=== PATIENT | male | born 1950 | race Caucasian/White ===

== ENCOUNTER 2018-01-11 15:08 | Inpatient (IN) | payer MEDICARE, OTHER ==
[2018-01-11 16:27] LABS: BASO # 0.04 K/mm3 (0.0-2.0); BASO % 0.5 % (0.0-3.0); EOS # 0.1 (0.0-0.7); EOS % 1.5 % (1.5-5.0); GRAN # 4.84 (1.4-6.5); GRAN % 65.5 % (50.0-68.0); HEMOGLOBIN 15.7 g/dL (14.0-18.0); LYMPH % 27.6 % (22.0-35.0); MEAN CELL VOLUME 87.6 fl (80.0-105.0); MEAN CORPUSCULAR HEMOGLOBIN 30.8 pg (25.0-35.0); MEAN CORPUSCULAR HGB CONC 35.1 g/dl (31.0-37.0); MEAN PLATELET VOLUME 10.3 fl (7.0-11.0); MONO # 0.4 (0.1-0.6); MONO % 4.9 % (1.0-6.0); RBC 5.1 10^6/uL (3.5-6.1); RED CELL DISTRIBUTION WIDTH 12.8 % (11.5-14.5); WHITE BLOOD COUNT 7.4 10^3/ul (4.5-11.0)
[2018-01-11 16:35] LABS: ALB/GLOB RATIO 1.1 (1.1-1.8); ALBUMIN 4.8 g/dL (3.0-4.8); CALCIUM 11.2 mg/dL (8.4-10.5); MAGNESIUM 1.9 mg/dL (1.7-2.2)
[2018-01-11 16:41] LABS: INR 1.06 (0.93-1.08); PARTIAL THROMBOPLASTIN TIME 33.1 Seconds (25.1-36.5); PROTHROMBIN TIME 12.1 SECONDS (9.4-12.5)
[2018-01-11] MEDS ORDERED: Sodium Chloride 0.9% 1,000 ML IV STA (16:41)
--- NOTE | 2018-01-11 16:53 | ED PDOC ---
Arrival/HPI - General Chief Complaint: High Blood Pressure Time Seen by Provider: 01/11/18 15:36 Historian: Patient - History of Present Illness Narrative History of Present Illness (Text): 01/11/18 16:45 67yo male with PMhx of hypertension present to ED with complaint of elevated BP. the daughter by the bedside interpreted. States patient BP has be intermittently elevated for a week now. Notes associated dryness of his mouth and generalized malasie. He is currently on Losartan 50mg and HCTZ 25mg. Notes complaint with his medications. Denies chest pain, headache, nausea, vomiting, focal weakness, slurred speech, dizziness, any other complaint. Past Medical History - Provider Review Nursing Documentation Reviewed: Yes - Cardiac Hx Cardiac Disorders: Yes Hx Hypertension: Yes - Pulmonary Hx Respiratory Disorders: No - Neurological Hx Neurological Disorder: Yes Hx Transient Ischemic Attacks (TIA): Yes - HEENT Hx HEENT Disorder: No - Renal Hx Renal Disorder: No - Endocrine/Metabolic Hx Endocrine Disorders: No - Hematological/Oncological Hx Blood Disorders: No - Integumentary Hx Dermatological Disorder: No - Musculoskeletal/Rheumatological Hx Musculoskeletal Disorders: No - Gastrointestinal Hx Gastrointestinal Disorders: No - Genitourinary/Gynecological Hx Genitourinary Disorders: No - Psychiatric Hx Psychophysiologic Disorder: No Hx Substance Use: No - Surgical History Hx Appendectomy: Yes Family/Social History - Physician Review Nursing Documentation Reviewed: Yes Family/Social History: Unknown Family HX Smoking Status: Never Smoked Hx Alcohol Use: No Hx Substance Use: No Allergies/Home Meds Allergies/Adverse Reactions: Allergies No Known Allergies Allergy (Verified 01/11/18 15:32) Home Medications: Home Meds Medication Instructions Recorded Confirmed Hydrochlorothiazide [Microzide] 25 mg PO DAILY 01/11/18 01/11/18 Losartan [Cozaar] 50 mg PO DAILY 01/11/18 01/11/18 Review of Systems - Physician Review All systems were reviewed & negative as marked: Yes - Review of Systems Constitutional: Normal, Other (elevated BP) Eyes: Normal ENT: Normal Respiratory: Normal Cardiovascular: Normal Gastrointestinal: Normal Genitourinary Male: Normal Musculoskeletal: Normal Skin: Normal Neurological: Normal Endocrine: Normal Hemo/Lymphatic: Normal Psychiatric: Normal Physical Exam Vital Signs Reviewed: Yes Vital Signs Temp Pulse Resp BP Pulse Ox 01/11/18 21:22 71 18 101/74 97 01/11/18 17:58 64 18 101/51 L 100 01/11/18 16:35 80 17 111/62 95 01/11/18 16:17 89 189/112 H 01/11/18 15:33 98.7 F 83 16 206/118 H 94 L Temperature: Afebrile Blood Pressure: Hypertensive Pulse: Regular Respiratory Rate: Normal Appearance: Positive for: Well-Appearing, Non-Toxic, Comfortable Pain Distress: None Mental Status: Positive for: Alert and Oriented X 3 - Systems Exam Head: Present: Atraumatic, Normocephalic Pupils: Present: PERRL Extroacular Muscles: Present: EOMI Conjunctiva: Present: Normal Mouth: Present: Moist Mucous Membranes Neck: Present: Normal Range of Motion Respiratory/Chest: Present: Clear to Auscultation, Good Air Exchange. No: Respiratory Distress, Accessory Muscle Use Cardiovascular: Present: Regular Rate and Rhythm, Normal S1, S2. No: Murmurs Abdomen: Present: Normal Bowel Sounds. No: Tenderness, Distention, Peritoneal Signs Back: Present: Normal Inspection Upper Extremity: Present: Normal Inspection. No: Cyanosis, Edema Lower Extremity: Present: Normal Inspection. No: Edema Neurological: Present: GCS=15, CN II-XII Intact, Speech Normal Skin: Present: Warm, Dry, Normal Color. No: Rashes Psychiatric: Present: Alert, Oriented x 3, Normal Insight, Normal Concentration Medical Decision Making ED Course and Treatment: 01/11/18 21:27 PT in ED for stated history. His BP improved in ED. Elevated BUN/Cr was noted which could be pre renal and pt was hydrated. No old lab to compare. He started complaining of sever dizziness in ED with vomiting. Vomiting resolved with antiemesis Head CT was negative for acute finding Lab was unremarkable Pt don't have any PMD here in [place]. He needs to be admitted for obs and better control of his BP Case was DW Dr. Chaudhary and he accepted pt for admission. EKG NSR At 81bpm. Result and plan was DW both pt and his family and they agreed. - Lab Interpretations Lab Results: 01/11/18 16:08 01/11/18 16:08 Lab Results 01/11/18 16:45: Urine Color Yellow, Urine Appearance Clear, Urine pH 6.0, Ur Specific Porum 1.015, Urine Protein Negative, Urine Glucose (UA) Negative, Urine Ketones Negative, Urine Blood Negative, Urine Nitrate Negative, Urine Bilirubin Negative, Urine Urobilinogen 0.2, Ur Leukocyte Esterase Negative 01/11/18 16:08: Sodium 139, Potassium 4.6, Chloride 96 L, Carbon Dioxide 29, Anion Gap 18, BUN 28 H, Creatinine 1.7 H, Est GFR ( Amer) 49, Est GFR ( Non-Af Amer) 40, Random Glucose 103, Calcium 11.2 H, Magnesium 1.9, Total Bilirubin 0.9, AST 35, ALT 28, Alkaline Phosphatase 86, Lactate Dehydrogenase 503, Total Creatine Kinase 84, Troponin I 0.02, Total Protein 9.4 H, Albumin 4.8 , Globulin 4.5, Albumin/Globulin Ratio 1.1 01/11/18 16:08: PT 12.1, INR 1.06, APTT 33.1 01/11/18 16:08: WBC 7.4, RBC 5.10, Hgb 15.7, Hct 44.7, MCV 87.6, MCH 30.8, MCHC 35.1, RDW 12.8, Plt Count 209, MPV 10.3, Gran % 65.5, Lymph % (Auto) 27.6, Dodge % (Auto) 4.9, Eos % (Auto) 1.5, Baso % (Auto) 0.5, Gran # 4.84, Lymph # (Auto) 2.0, Dodge # (Auto) 0.4, Eos # (Auto) 0.1, Baso # (Auto) 0.04 - RAD Interpretation Radiology Orders: 01/11/18 18:12 HEAD W/O CONTRAST [CT] Stat - Medication Orders Current Medication Orders: Discontinued Medications Hydralazine HCl (Apresoline) 20 mg IVP ONCE STA Stop: 01/11/18 15:53 Last Admin: 01/11/18 16:17 Dose: 20 mg IVP Administration Document 01/11/18 16:17 [facility] (Rec: 01/11/18 16:[id number] Charges for Administration # of IVP Administrations 1 MAR Pulse and Blood Pressure Document 01/11/18 16:17 [email or web address] (Rec: 01/11/18 16:[id number]) Pulse Pulse Rate (60-90) 89 Blood Pressure Blood Pressure (100/60-150/90) 189/112 Sodium Chloride (Sodium Chloride 0.9%) 1,000 mls @ 999 mls/hr IV .Q1H1M STA Stop: 01/11/18 17:41 Last Admin: 01/11/18 17:06 Dose: 999 mls/hr eMAR Start Stop Document 01/11/18 17:06 [facility] (Rec: 01/11/18 17:06 [facility] [id number]) Intravenous Solution Start Date 01/11/18 Start Time 17:06 End Date 01/11/18 Meclizine HCl (Antivert) 25 mg PO STAT STA Stop: 01/11/18 18:12 Ondansetron HCl (Zofran Inj) 4 mg IVP STAT STA Stop: 01/11/18 18:12 Last Admin: 01/11/18 19:05 Dose: 4 mg IVP Administration Document 01/11/18 19:05 [facility] (Rec: 01/11/18 19:05 [facility] [id number]) Charges for Administration # of IVP Administrations 1 Disposition/Present on Arrival - Present on Arrival Any Indicators Present on Arrival: No History of DVT/PE: No History of Uncontrolled Diabetes: No Urinary Catheter: No History of Decub. Ulcer: No History Surgical Site Infection Following: None - Disposition Have Diagnosis and Disposition been Completed?: Yes Diagnosis: Uncontrolled hypertension, Near syncope Disposition: HOSPITALIZED Disposition Time: 21:00 Patient Plan: Admission Patient Problems: Current Active Problems Problem Status Onset Near syncope Acute Uncontrolled hypertension Acute Condition: FAIR
[2018-01-11 16:54] LABS: TROPONIN I 0.02 ng/mL
[2018-01-11 17:07] LABS: URINE BILIRUBIN NEGATIVE (NEGATIVE); URINE BLOOD NEGATIVE (NEGATIVE); URINE GLUCOSE (UA) NEGATIVE (NEGATIVE); URINE LEUKOCYTE ESTERASE NEGATIVE Leu/uL (NEGATIVE); URINE NITRATE NEGATIVE (NEGATIVE); URINE PROTEIN NEGATIVE mg/dL (<30 mg/dL); URINE UROBILINOGEN 0.2 E.U./dL (<1 E.U./dL)
[2018-01-11 17:08] LABS: URINE APPEARANCE CLEAR (CLEAR); URINE COLOR YELLOW (YELLOW)
--- NOTE | 2018-01-11 19:03 | CT ---
PROCEDURE: CT HEAD WITHOUT CONTRAST. HISTORY: dizziness COMPARISON: None available. TECHNIQUE: Axial computed tomography images were obtained through the head/brain without intravenous contrast. Radiation dose: Total exam DLP = 981.90 MGy-cm. This CT exam was performed using one or more of the following dose reduction techniques: Automated exposure control, adjustment of the mA and/or kV according to patient size, and/or use of iterative reconstruction technique. FINDINGS: HEMORRHAGE: No intracranial hemorrhage. BRAIN: No mass effect or edema. Dense intracranial atherosclerosis. Scattered white matter hypodensities, which are nonspecific, but often seen with chronic microvascular ischemic disease. Please note that MRI with diffusion imaging is more sensitive in the detection of acute ischemic event. VENTRICLES: Cavum septum pellucidum, anatomic variant. No hydrocephalus. CALVARIUM: Unremarkable. PARANASAL SINUSES: Unremarkable as visualized. No significant inflammatory changes. MASTOID AIR CELLS: Unremarkable as visualized. No inflammatory changes. OTHER FINDINGS: None. IMPRESSION: Scattered nonspecific white matter changes. Dense intracranial atherosclerosis. Mild generalized atrophy.
[2018-01-12] MEDS ORDERED: Sodium Chloride 0.45% 1,000 ML IV SCH (07:45)
[2018-01-12 08:55] LABS: ALB/GLOB RATIO 1.2 (1.1-1.8); ALBUMIN 4.5 g/dL (3.0-4.8); CALCIUM 10.2 mg/dL (8.4-10.5)
--- NOTE | 2018-01-12 10:08 | CON ---
DATE: 01/12/2018 CARDIOLOGY CONSULTATION HISTORY OF PRESENT ILLNESS: The patient is a 67-year-old male who presents with transient dizziness. The patient is completely asymptomatic this morning. Denies chest pain, denies shortness of breath. The patient has no previous cardiac history. He does suffer from hypertension, in which he is placed on an DANTE inhibitor and a diuretic. He denies diabetes mellitus. Denies previous myocardial infarction. SOCIAL HISTORY: Negative smoker. REVIEW OF SYSTEMS: Fourteen point review of systems was reviewed in detail. No cardiac symptomatology is noted. PHYSICAL EXAMINATION VITAL SIGNS: Blood pressure is 106/72, the heart rates in the 70s. NECK: Negative JVD. LUNGS: Without rales. HEART: Reveals S1 and S2. EXTREMITIES: Without edema. LABORATORY DATA: EKG is unremarkable. Creatinine is 1.7 with a calcium of 11.2. Hemoglobin is 15.7. IMPRESSION: 1. Transient dizziness, which is now resolved. 2. History of hypertension. 3. Renal insufficiency. 4. Borderline diabetes mellitus. PLAN: Given these findings, there is no cardiac cause of his transient dizziness. There is no evidence for acute coronary syndrome. Given his risk factors, we will order a stress and echocardiogram. This could all be done as an outpatient. Charles Cleveland MD
[2018-01-12 12:40] LABS: MEAN CELL VOLUME 88.6 fl (80.0-105.0); MEAN CORPUSCULAR HEMOGLOBIN 30.7 pg (25.0-35.0); MEAN CORPUSCULAR HGB CONC 34.7 g/dl (31.0-37.0); RBC 4.56 10^6/uL (3.5-6.1); RED CELL DISTRIBUTION WIDTH 13.5 % (11.5-14.5); WHITE BLOOD COUNT 10.9 10^3/ul (4.5-11.0)
[2018-01-12 12:53] LABS: ALB/GLOB RATIO 1.2 (1.1-1.8); ALBUMIN 4.5 g/dL (3.0-4.8); CALCIUM 10.4 mg/dL (8.4-10.5)
--- NOTE | 2018-01-12 16:59 | CP.PCM.CON ---
History of Present Illness - History of Present Illness History of Present Illness: Nephrology Consultation Note: Assessment: Stable Acute Kidney Injury (N17.9) likely due to Hypercalcemia and hemodynamic as elevated by a blood pressure fluctuations Hypercalcemia? Etiology possibly due to HCTZ Abnormal LFTs with elevated AST ALT Possible Hypertensive Chronic Kidney Disease (I12.9) Dizziness likely due to blood pressure fluctuation Plan No acute need for renal replacement therapy at this time. Hypertension control with meds as ordered. Agree with amlodipine low-dose recommended to hold ARB also going to hold HCTZ considering his hypercalcemia Monitor Input/Output, daily weights and renal function with basic metabolic panel While in hospital Agree with IV fluids normal saline while patient in Hospital Check urine analysis, spot protein/creatinine and albumin/creatinine ratio, renal sonogram With Doppler. Will check serum protein electrophoresis with immunofixation, serum FLC assay. Also check vitamin D and PTH level Secondary hypertension workup with metanephrine aldosterone and renin level Workup for abnormal LFT as per primary team Patient stable for discharge from renal perspective and planned. Patient advised to follow with renal office within one week. if patient discharged then we'll pursue this workup as an outpatient Dose meds/antibiotics for reduced GFR. Avoid fleets enema/magnesium based laxatives. Avoid nephrotoxins/NSAIDs/ iodinated contrast (unless needed emergently) Glycemic control Further work up/management as per primary team Thanks for allowing me to participate in care of your patient. Will follow patient with you. Please call if any Qs Discussed with the team Dr Raffy Tijerina Office: [phone] Chief Complaint; Dizziness Reason for consult, acute kidney injury HPI: Pt is a he has history of hypertension +15-20 years he's been taking losartan 50 mg hydrochlorothiazide for this. Patient's blood pressure was high when he came in 206/108 now is 109/71 has elevated creatinine and hence renal consulted. This time feels better he denies any chest breath and shortness of breath cough and fever chills his his dizziness is better at this time Denies OTC/herbal meds or NSAIDs No recent iodinated contrast exposure. now low BP. ROS: Cardiovascular: No chest pain. Pulmonary: No shortness of breath Gastrointestinal: denies abdominal pain No nausea. No vomiting. Genitourinary: No pain while urinating. Denies blood in urine. All other negative except as mentioned in HPI Physical Examination: General Appearance: Comfortable, in no acute respiratory distress, co-operative . Vitals reviewed and noted as below Head; Atraumatic, normocephalic ENT: no ulcers no thrush. Tongue is midline. Oropharynx: no rash or ulcers. EYES: Pupils are equal, round and reactive to light accommodation. Eye muscles and extraocular movement intact. Sclera is anicteric. Neck; supple no lymphadenopathy, no thyromegaly or bruit Lungs: Normal respiratory rate/effort. Breath sounds bilateral equal and clear Heart: Normal rate. s1s2 normal. No rub or gallop. Extremities: no edema. No varicose veins Neurological: Patient is alert, awake and oriented to person, place and time. No focal deficit. Strength bilateral appropriate and equal Skin: Warm and dry. Normal turgor. No rash. Palpitation: Normal elasticity for age Abdomen: Abdomen is soft. Bowel sounds +. There is no abdominal tenderness, no guarding/rigidity no organomegaly, Abdomen is distended Psych: normal insight and normal affect/mood MSK: no joint tenderness or swelling. Digits and nails normal, no deformity : kidney or bladder not palpable Labs/imaging reviewed. Past medical history, past surgical history, family history, social history, allergy reviewed and noted as below Family hx: no hx of CKD. Rest non-contributory Workup UA negative for any blood protein Past Patient History - Past Social History Smoking Status: Never Smoked - CARDIAC Hx Cardiac Disorders: Yes Hx Hypertension: Yes - PULMONARY Hx Respiratory Disorders: No - NEUROLOGICAL Hx Neurological Disorder: Yes Hx Transient Ischemic Attacks (TIA): Yes - HEENT Hx HEENT Problems: No - RENAL Hx Chronic Kidney Disease: No - ENDOCRINE/METABOLIC Hx Endocrine Disorders: No - HEMATOLOGICAL/ONCOLOGICAL Hx Blood Disorders: No - INTEGUMENTARY Hx Dermatological Problems: No - MUSCULOSKELETAL/RHEUMATOLOGICAL Hx Musculoskeletal Disorders: No Hx Falls: No - GASTROINTESTINAL Hx Gastrointestinal Disorders: No - GENITOURINARY/GYNECOLOGICAL Hx Genitourinary Disorders: No - PSYCHIATRIC Hx Psychophysiologic Disorder: No - SURGICAL HISTORY Hx Appendectomy: Yes Meds Allergies/Adverse Reactions: Allergies Allergy/AdvReac Type Severity Reaction Status Date / Time No Known Allergies Allergy Verified 01/11/18 15:32 - Medications Medications: Current Medications Amlodipine Besylate (Norvasc) 2.5 mg PO DAILY DON Sodium Chloride (Sodium Chloride 0.45%) 1,000 mls @ 60 mls/hr IV .[id number] DON Results - Vital Signs Recent Vital Signs: Last Vital Signs Temp 98.3 F 01/12/18 07:00 Pulse 67 01/12/18 10:46 Resp 18 01/12/18 07:00 BP 109/71 01/12/18 10:46 Pulse Ox 93 L 01/12/18 07:00 - Labs Result Diagrams: 01/12/18 12:30 01/12/18 12:30 Labs: Laboratory Results - last 24 hr 01/12/18 01/12/18 01/12/18 08:20 12:30 12:30 WBC 10.9 D RBC 4.56 Hgb 14.0 Hct 40.4 L MCV 88.6 MCH 30.7 MCHC 34.7 RDW 13.5 Plt Count 196 MPV 10.0 Sodium 137 136 Potassium 5.0 5.1 H Chloride 98 96 L Carbon Dioxide 26 26 Anion Gap 19 18 BUN 37 H 38 H Creatinine 2.2 H 2.1 H Est GFR ( Amer) 36 38 Est GFR (Non-Af Amer) 30 32 Random Glucose 128 H 120 H Calcium 10.2 10.4 Total Bilirubin 1.1 1.0 AST 538 H D 677 H D ALT 69 H 87 H Alkaline Phosphatase 62 58 Total Protein 8.4 H 8.4 H Albumin 4.5 4.5 Globulin 3.9 3.8 Albumin/Globulin Ratio 1.2 1.2
--- NOTE | 2018-01-12 20:39 | PN ---
SUBJECTIVE: I was called to see him by the Emergency Room. He comes into the hospital with an extremely high elevated blood pressure, brought in by the daughter, who is the bit grinder. She was also there when I saw him. He is also a little bit weak, dry mouth. He has been on losartan 50 mg and hydrochlorothiazide 25 mg. No other complaints or issues. PAST MEDICAL HISTORY: He has hypertension. He has had a TIA in the past. PAST SURGICAL HISTORY: He had an appendectomy. It is his only surgery. FAMILY HISTORY: Unknown family history. SOCIAL HISTORY: Never smoked. No alcohol. No drugs. ALLERGIES: NO KNOWN DRUG ALLERGIES. MEDICATIONS: He takes hydrochlorothiazide and Cozaar. REVIEW OF SYSTEMS: He has elevated blood pressure, but no headache. No vision changes, no hearing changes. No sore throat. No neck pain. No chest pain or palpitations. No shortness of breath. No cough. No abdominal pain. No nausea, vomiting, constipation, diarrhea. No leg pain. No anxiety. No depression. No tremors. PHYSICAL EXAMINATION: VITAL SIGNS: He has a 98.7 temperature, 83 pulse, 16 respiratory rate, blood pressure was as high as 206/118 and 94% O2 sat. It did go to 189/112 and eventually went to 101/74 with some medication in the ER. I am seeing him this morning, it is still about 105/70. He is comfortable right now. He has not had medication about 8 hours. GENERAL: He is well appearing, nontoxic, comfortable. He is alert and oriented x3. HEENT: Head: Atraumatic, normocephalic. Pupils equal, reactive to light and accommodation. Extraocular muscles are intact. Throat is moist. NECK: Supple. Thyroid midline. No palpable appreciable lymphadenopathy. HEART: Regular rate. Normal S1, S2. LUNGS: Decreased breath sounds. Clear to auscultation. ABDOMEN: Soft, nontender. Positive bowel sounds. EXTREMITIES: No edema. NEUROLOGICAL: GCS is 15. Cranial nerves are II through XII grossly intact. Speech is normal. SKIN: Warm and dry. NEUROLOGIC: Alert and oriented x3. He looks very comfortable. LABORATORY DATA: He had a CT of the head, which shows scattered nonspecific white matter changes, dense intracranial atherosclerosis, mild generalized atrophy. He has a 139 sodium, potassium 4.6, BUN 20, creatinine 1.7, which is new and I was not told about it. We will put him on some IV fluids and call on Renal, calcium is 7.2, which is also quite high, we will call on Renal for that too. His magnesium is 1.9, total bili is 0.9, AST is 35, ALT is 20, alkaline phosphatase is 86. Troponin I is 0.02, total protein is 9.4. His INR is 1.06. He has 7.4 white count, 15.7 hemoglobin, 44.7 hematocrit with a 209 platelets. Last blood pressure was 106/72. PLAN: I stopped the Apresoline and the Cozaar and I am going to put him on Norvasc at 2.5 mg for today. I called in Cardiology, Neurology and Renal. I put him on IV fluids. I have lab pending at 1:00 o'clock today. I am hoping I could discharge him later on this afternoon if it is okay with Renal, Cardio, and Neuro. He is quite comfortable right now. Everything seems to have resolved and I will set him up on Norvasc 2.5 if that is okay with the other doctors. Otherwise, elevated hypertension, renal insufficiency, high calcium and he is pleasant at this time. He is here for observation. Myron Chaudhary DO MTDD
--- NOTE | 2018-01-12 23:33 | CON ---
DATE: HISTORY OF PRESENT ILLNESS: This is a 67-year-old male with no significant past medical history, came here with a period of transient dizziness and also has a past medical history of hypertension. I was called to evaluate the patient's CAT scan of the head, which was reported negative for bleed. PAST MEDICAL HISTORY: Hypertension. SOCIAL HISTORY: Negative for smoking. REVIEW OF SYSTEMS: A 10-point review of systems negative. PHYSICAL EXAMINATION: VITAL SIGNS: Blood pressure 106/72. HEENT: Normocephalic, atraumatic. NECK: Supple. NEUROLOGIC: Alert, awake, oriented x3. No aphasia. Cranial nerves II through XII are tested. Pupils reactive. EOM intact. Visual peterson full. No facial asymmetry. Tongue midline. Motor; moves all extremities equally. Tone normal. Deep tendon reflexes 1+. Both plantars are downgoing. Sensory appears intact. Cerebellar; gait, no dysmetria. IMPRESSION AND PLAN: Dizziness, possibly benign positional; history of hypertension; renal insufficiency and borderline diabetes. Continue present medications and workup. We will follow up. Jacobo Lockwood MD
[2018-01-13 06:52] LABS: MEAN CELL VOLUME 88.5 fl (80.0-105.0); MEAN CORPUSCULAR HEMOGLOBIN 29.8 pg (25.0-35.0); MEAN CORPUSCULAR HGB CONC 33.7 g/dl (31.0-37.0); MEAN PLATELET VOLUME 10.7 fl (7.0-11.0); RBC 4.36 10^6/uL (3.5-6.1); RED CELL DISTRIBUTION WIDTH 13.5 % (11.5-14.5); WHITE BLOOD COUNT 11.7 10^3/ul (4.5-11.0)
[2018-01-13 07:16] LABS: ALB/GLOB RATIO 1.2 (1.1-1.8); ALBUMIN 4.2 g/dL (3.0-4.8); CALCIUM 9.9 mg/dL (8.4-10.5)
--- NOTE | 2018-01-13 08:46 | CP.PCM.CON ---
<Tisha Cross - Last Filed: 01/13/18 09:30> History of Present Illness - History of Present Illness History of Present Illness: PGY4 Initial GI Consult Sloan Santana is a 67M w/ hx of HTN who presented to the office for elevated BP. Pt was found to be in hypertensive emergency with BERE. Pt blood pressure was corrected rapidly. He presented with BERE and is being actively being seen by nephrology. He denies any recent or previous alcohol use. He notes that he last had a beer 1-2 months ago. He notes taking a prostate supplement. Pt was not started on any meds that would cause his Liver enzymes to rise. His AST peaked to ~650 and AST ~ 100. He denies any previous exposure to hepatitis virus and past hospitalization fir liver related issues. he notes previously having [place], but does not recall the doctors name or results. Denies any abd pain, melena, hematemesis, or coffee-ground emesis. PMHx: HTN PSHx: Appendectomy Social Hx: denies alcohol use (social; 1-2 beers on occasion), denies any IV drug use Endo hx: EGD and colonoscopy 1-2 years ago Family hx: denies any colon cancer ROS: 12 point ROS conducted neg other than above Past Patient History - Past Social History Smoking Status: Never Smoked - CARDIAC Hx Cardiac Disorders: Yes Hx Hypertension: Yes - PULMONARY Hx Respiratory Disorders: No - NEUROLOGICAL Hx Neurological Disorder: Yes Hx Transient Ischemic Attacks (TIA): Yes - HEENT Hx HEENT Problems: No - RENAL Hx Chronic Kidney Disease: No - ENDOCRINE/METABOLIC Hx Endocrine Disorders: No - HEMATOLOGICAL/ONCOLOGICAL Hx Blood Disorders: No - INTEGUMENTARY Hx Dermatological Problems: No - MUSCULOSKELETAL/RHEUMATOLOGICAL Hx Musculoskeletal Disorders: No Hx Falls: No - GASTROINTESTINAL Hx Gastrointestinal Disorders: No - GENITOURINARY/GYNECOLOGICAL Hx Genitourinary Disorders: No - PSYCHIATRIC Hx Psychophysiologic Disorder: No - SURGICAL HISTORY Hx Appendectomy: Yes Meds Allergies/Adverse Reactions: Allergies Allergy/AdvReac Type Severity Reaction Status Date / Time No Known Allergies Allergy Verified 01/11/18 15:32 - Medications Medications: Current Medications Amlodipine Besylate (Norvasc) 2.5 mg PO DAILY DON Sodium Chloride (Sodium Chloride 0.45%) 1,000 mls @ 60 mls/hr IV .[id number] [facility] Last Admin: 01/12/18 21:56 Dose: 60 mls/hr Physical Exam - Constitutional Appears: No Acute Distress - Head Exam Head Exam: ATRAUMATIC, NORMOCEPHALIC - Eye Exam Eye Exam: Normal appearance - ENT Exam ENT Exam: Mucous Membranes Moist, Normal Exam - Neck Exam Neck exam: Positive for: Normal Inspection - Respiratory Exam Respiratory Exam: Clear to Auscultation Bilateral, NORMAL BREATHING PATTERN. absent: Rales, Rhonchi, Wheezes, Respiratory Distress - Cardiovascular Exam Cardiovascular Exam: REGULAR RHYTHM, +S1, +S2 - GI/Abdominal Exam GI & Abdominal Exam: Normal Bowel Sounds, Soft. absent: Distended, Guarding, Organomegaly, Rigid, Tenderness - Extremities Exam Extremities exam: Negative for: joint swelling, tenderness - Neurological Exam Neurological exam: Alert, Oriented x3 - Psychiatric Exam Psychiatric exam: Normal Affect, Normal Mood - Skin Skin Exam: Dry, Intact, Normal Color, Warm Results - Vital Signs Recent Vital Signs: Last Vital Signs Temp 98.6 F 01/13/18 08:40 Pulse 83 01/13/18 08:40 Resp 20 01/13/18 08:40 BP 125/81 01/13/18 08:40 Pulse Ox 96 01/13/18 08:40 - Labs Result Diagrams: 01/13/18 05:30 01/13/18 05:30 Labs: Laboratory Results - last 24 hr 01/12/18 01/12/18 01/12/18 08:20 12:30 12:30 WBC 10.9 D RBC 4.56 Hgb 14.0 Hct 40.4 L MCV 88.6 MCH 30.7 MCHC 34.7 RDW 13.5 Plt Count 196 MPV 10.0 Sodium 137 136 Potassium 5.0 5.1 H Chloride 98 96 L Carbon Dioxide 26 26 Anion Gap 19 18 BUN 37 H 38 H Creatinine 2.2 H 2.1 H Est GFR ( Amer) 36 38 Est GFR (Non-Af Amer) 30 32 Random Glucose 128 H 120 H Calcium 10.2 10.4 Phosphorus Total Bilirubin 1.1 1.0 AST 538 H D 677 H D ALT 69 H 87 H Alkaline Phosphatase 62 58 Total Protein 8.4 H 8.4 H Albumin 4.5 4.5 Globulin 3.9 3.8 Albumin/Globulin Ratio 1.2 1.2 01/12/18 01/13/18 01/13/18 12:30 05:30 05:30 WBC 11.7 H RBC 4.36 Hgb 13.0 L Hct 38.6 L MCV 88.5 MCH 29.8 MCHC 33.7 RDW 13.5 Plt Count 180 MPV 10.7 Sodium 135 Potassium 4.5 Chloride 96 L Carbon Dioxide 27 Anion Gap 16 BUN 43 H Creatinine 1.9 H Est GFR ( Amer) 43 Est GFR (Non-Af Amer) 36 Random Glucose 110 Calcium 9.9 Phosphorus 4.3 Total Bilirubin 1.2 AST 669 H ALT 105 H Alkaline Phosphatase 55 Total Protein 7.8 Albumin 4.2 Globulin 3.6 Albumin/Globulin Ratio 1.2 Assessment & Plan - Assessment and Plan (Free Text) Assessment: Sloan Santana is a 67M w/ hx of HTN who presented with hypertensive emergency. Consulted for elevated transaminases. Elevated trnasaminases; etiology muscular versus hepatic, based on AST:ALT >6 HTN emergency BERE Plan: -add-on CK levels -will order infectous and autoimmune work-up -abd u/s -AST and ALT is also in muscle cells and AST is at a higher ratio. will order CK levels to determine if pt had underlying rhabomyolsis -DDx: Hypoperfusion in the setting of correction of longstanding elevate HTN -monitor LFTs -rest of care as per primary team D/W Dr. Herrera <Duarte Herrera - Last Filed: 01/13/18 13:08> Meds - Medications Medications: Current Medications Amlodipine Besylate (Norvasc) 2.5 mg PO DAILY [facility] Last Admin: 01/13/18 10:08 Dose: 2.5 mg Sodium Chloride (Sodium Chloride 0.9%) 1,000 mls @ 150 mls/hr IV .Q6H40M [facility] Last Admin: 01/13/18 11:08 Dose: 150 mls/hr Results - Vital Signs Recent Vital Signs: Last Vital Signs Temp 98.6 F 01/13/18 08:40 Pulse 83 01/13/18 08:40 Resp 20 01/13/18 08:40 BP 125/81 01/13/18 10:08 Pulse Ox 96 01/13/18 08:40 - Labs Result Diagrams: 01/13/18 05:30 01/13/18 05:30 Attending/Attestation - Attestation I have personally seen and examined this patient.: Yes I have fully participated in the care of the patient.: Yes I have reviewed all pertinent clinical information: Yes Notes (Text): 01/13/18 13:07 67 year old male with h/o HTN, we are consulted for elevated LFTs. His AST : ALT ratio is 6:1, which is consistent with a muscle source for this abnormality. We checked a CK which is also acutely elevated and this confirms this is from a muscle, not liver source. Will sign off.
[2018-01-13 10:12] LABS: CK MB% 3.9 % (2.5-3.0)
--- NOTE | 2018-01-13 10:52 | US ---
HISTORY: Elevated LFTs COMPARISON: None. TECHNIQUE: Grayscale imaging was performed. FINDINGS: LIVER: Measures 15.8 cm. There is diffuse increased echogenicity of the liver parenchyma. No mass. No intrahepatic bile duct dilatation. GALLBLADDER: There are no gallstones, wall thickening or pericholecystic fluid. The sonographic Guzman's sign is negative. COMMON BILE DUCT: Measures 5.7 mm. No stones. No dilatation. PANCREAS: Unremarkable as visualized. No mass. No ductal dilatation. RIGHT KIDNEY: Measures 10.8cm. Normal echogenicity. No calculus, mass, or hydronephrosis. LEFT KIDNEY: Measures 10.0cm. Normal echogenicity. No calculus, mass, or hydronephrosis. SPLEEN: Normal in size and contour. No mass. AORTA: No aneurysmal dilatation. IVC: Unremarkable. OTHER FINDINGS: None. IMPRESSION: Diffuse increased echogenicity in the liver may reflect hepatic steatosis however parenchymal infectious/ inflammatory etiologies cannot be entirely excluded. Clinical and laboratory correlation is advised. No cholelithiasis or biliary dilatation.
[2018-01-13] MEDS: Sodium Chloride 0.9% 1,000 ML IV SCH ×2 (11:08→17:59)
--- NOTE | 2018-01-13 12:47 | CARD ---
APPROVED REPORT EKG Measurement Heart [id number] <Conclusion> Normal sinus rhythm Inferior infarct, age Old.
[2018-01-13 14:50] LABS: BARBITURATES, UR NEGATIVE (NEGATIVE); BENZODIAZEPINES, UR NEGATIVE (NEGATIVE); OPIATES, UR NEGATIVE (NEGATIVE); PHENCYCLIDINE, UR NEGATIVE (NEGATIVE)
--- NOTE | 2018-01-13 14:56 | CP.PCM.PN ---
Subjective - Date & Time of Evaluation Date of Evaluation: 01/13/18 Time of Evaluation: 14:53 - Subjective Subjective: Nephrology Consultation Note: Assessment: Stable Acute Kidney Injury (N17.9) likely due to Hypercalcemia and hemodynamic as elevated by a blood pressure fluctuations Hypercalcemia? Etiology possibly due to HCTZ Abnormal LFTs with elevated AST ALT Possible Hypertensive Chronic Kidney Disease (I12.9) Dizziness likely due to blood pressure fluctuation Rhabdomyolysis? Etiology Plan No acute need for renal replacement therapy at this time. Hypertension control with meds as ordered. Agree with amlodipine low-dose recommended to hold ARB also going to hold HCTZ considering his hypercalcemia Monitor Input/Output, daily weights and renal function with basic metabolic panel While in hospital Agree with IV fluids normal saline while patient in Hospital Increased to 150 mL per hour considering his high CPK WILL REPEAT CPK level this afternoon again Check urine analysis, spot protein/creatinine and albumin/creatinine ratio, renal sonogram With Doppler. Will check serum protein electrophoresis with immunofixation, serum FLC assay. Also check vitamin D and PTH level Secondary hypertension workup with metanephrine aldosterone and renin level Workup for abnormal LFT as per primary team If CPK level goes down then patient may be considered stable for discharge from renal perspective Patient advised to follow with renal office within one week. if patient discharged then we'll pursue this workup as an outpatient Dose meds/antibiotics for reduced GFR. Avoid fleets enema/magnesium based laxatives. Avoid nephrotoxins/NSAIDs/ iodinated contrast (unless needed emergently) Glycemic control Further work up/management as per primary team Thanks for allowing me to participate in care of your patient. Will follow patient with you. Please call if any Qs Discussed with the team Dr Raffy Tijerina Office: [phone] Chief Complaint; none Reason for consult, acute kidney injury HPI: Pt is a he has history of hypertension +15-20 years he's been taking losartan 50 mg hydrochlorothiazide for this. Patient's blood pressure was high when he came in 206/108 now is 109/71 has elevated creatinine and hence renal consulted. This time feels better he denies any chest breath and shortness of breath cough and fever chills his his dizziness is better at this time Denies OTC/herbal meds or NSAIDs No recent iodinated contrast exposure. now low BP. ROS: Used in demand interpretation for [place] Cardiovascular: No chest pain. Pulmonary: No shortness of breath Gastrointestinal: denies abdominal pain No nausea. No vomiting. Genitourinary: No pain while urinating. Denies blood in urine. All other negative except as mentioned in HPI Physical Examination: General Appearance: Comfortable, in no acute respiratory distress, co-operative . Vitals reviewed and noted as below Head; Atraumatic, normocephalic ENT: no ulcers no thrush. Tongue is midline. Oropharynx: no rash or ulcers. EYES: Pupils are equal, round and reactive to light accommodation. Eye muscles and extraocular movement intact. Sclera is anicteric. Neck; supple no lymphadenopathy, no thyromegaly or bruit Lungs: Normal respiratory rate/effort. Breath sounds bilateral equal and clear Heart: Normal rate. s1s2 normal. No rub or gallop. Extremities: no edema. No varicose veins Neurological: Patient is alert, awake and oriented to person, place and time. No focal deficit. Strength bilateral appropriate and equal Skin: Warm and dry. Normal turgor. No rash. Palpitation: Normal elasticity for age Abdomen: Abdomen is soft. Bowel sounds +. There is no abdominal tenderness, no guarding/rigidity no organomegaly, Abdomen is distended Psych: normal insight and normal affect/mood MSK: no joint tenderness or swelling. Digits and nails normal, no deformity : kidney or bladder not palpable Labs/imaging reviewed. Past medical history, past surgical history, family history, social history, allergy reviewed and noted as below Family hx: no hx of CKD. Rest non-contributory Workup UA negative for any blood protein Objective - Vital Signs/Intake and Output Vital Signs (last 24 hours): Temp Pulse Resp BP Pulse Ox 98.6 F 83 20 125/81 96 01/13/18 08:40 01/13/18 08:40 01/13/18 08:40 01/13/18 10:08 01/13/18 08:40 Intake and Output: 01/13/18 01/13/18 06:59 18:59 Intake Total 360 Balance 360 - Medications Medications: Current Medications Amlodipine Besylate (Norvasc) 2.5 mg PO DAILY DON Last Admin: 01/13/18 10:08 Dose: 2.5 mg Sodium Chloride (Sodium Chloride 0.9%) 1,000 mls @ 150 mls/hr IV .Q6H40M [facility] Last Admin: 01/13/18 11:08 Dose: 150 mls/hr - Labs Labs: PT 12.1 SECONDS (9.4-12.5) 01/11/18 16:08 INR 1.06 (0.93-1.08) 01/11/18 16:08 APTT 33.1 Seconds (25.1-36.5) 01/11/18 16:08
[2018-01-13 16:27] LABS: HEPATITIS B SURFACE AG Negative (NEGATIVE)
[2018-01-13 16:33] LABS: HEPATITIS A IGM NEGATIVE (NEGATIVE); HEPATITIS B CORE AB NEGATIVE (NEGATIVE)
[2018-01-13 16:45] LABS: HEPATITIS C ANTIBODY NEGATIVE (NEGATIVE)
[2018-01-13 17:57] LABS: CK MB% 3.4 % (2.5-3.0)
--- NOTE | 2018-01-13 17:59 | PN ---
DATE: 01/13/2018 CARDIOLOGY FOLLOWUP SUBJECTIVE: The patient's blood pressure is well controlled at 125/81, heart rate is in the 80s. The patient is asymptomatic. PHYSICAL EXAMINATION: NECK: Negative JVD. LUNGS: Without rales. HEART: S1, S2. EXTREMITIES: Without edema. LABORATORY DATA: Hemoglobin is 13. Chemistries, BUN and creatinine is 43 over 1.9. Transaminases remain elevated. IMPRESSION: 1. Accelerated hypertension. 2. Renal insufficiency. 3. Borderline diabetes mellitus. 4. Dizziness is resolved. Given these findings, the BP is well controlled. Patient is obtaining tests for his elevated transaminases. From a cardiac perspective, the rest of his workup can be done as an outpatient. Charles Cleveland MD
--- NOTE | 2018-01-13 19:27 | US ---
PROCEDURE: Bilateral renal artery duplex ultrasound. CLINICAL HISTORY: Renal artery stenosis. Uncontrolled hypertension. Evaluate for renovascular hypertension. PHYSICIAN(S): Charles Watts M.D. TECHNIQUE: Duplex sonography with color-flow Doppler was used to evaluate the visualized segments of the main renal arteries. The patient was evaluated in a fasting state. Imaging in a supine and decubitus position was performed. Limited evaluation of the arcuate waveforms and resistive indices were performed. FINDINGS: The overall quality of the study is adequate. The kidneys are normal in size, shape, and location. The right kidney measures 10.3cm in length and the left kidney measures 10.0cm in length. No solid renal masses, abnormal calcifications, or hydronephrosis is seen. The main right renal artery is tortuous but fairly well visualized from the aorta to the hilum. The peak systolic velocity in the right main renal artery is 110 cm/sec. This is consistent with a 0 to 49% stenosis in the main right renal artery. The arcuate waveforms are normal. The resistive index is normal. There is an elevated velocity at the ostium of the left renal artery. Peak systolic velocity is 277 cm/second.. This is consistent with 50-99 percent left ostial renal artery stenosis. The arcuate waveforms and resistive indices are normal. Incidental note is made of 4.3 cm infrarenal abdominal aortic aneurysm with some mural thrombus. IMPRESSION: 1. The main renal arteries are fairly well visualized. 2. 50-99 percent right renal artery ostial stenosis. This can be confirmed with conventional arteriography, CTA, or MRA if clinically indicated. 3. The kidneys are normal and symmetric in size. There are no solid renal masses, abnormal calcifications or hydronephrosis noted. 4. 4.3 cm infrarenal abdominal aortic aneurysm.
[2018-01-14] MEDS: Sodium Chloride 0.9% 1,000 ML IV SCH ×2 (00:30→06:41)
[2018-01-14 07:10] LABS: HEMOGLOBIN 11.2 g/dL (14.0-18.0); MEAN CORPUSCULAR HEMOGLOBIN 29.2 pg (25.0-35.0); MEAN CORPUSCULAR HGB CONC 32.8 g/dl (31.0-37.0); MEAN PLATELET VOLUME 10.9 fl (7.0-11.0); RBC 3.83 10^6/uL (3.5-6.1); RED CELL DISTRIBUTION WIDTH 13.6 % (11.5-14.5)
[2018-01-14 07:35] LABS: ALBUMIN 3.2 g/dL (3.0-4.8); CALCIUM 8.8 mg/dL (8.4-10.5)
[2018-01-14 07:48] LABS: CK MB% 2.6 % (2.5-3.0); CK-MB 34.8 ng/mL (0.0-3.6)
[2018-01-14 07:56] LABS: CERULOPLASMIN 31 mg/dL (18-36)
--- NOTE | 2018-01-14 08:39 | DS ---
HISTORY OF PRESENT ILLNESS: He came in yesterday with hypertension, renal insufficiency, high calcium. He was having very elevated liver enzymes; not on the first blood test, but on the second. So I called in GI. They could not see him, so we had to keep him one more night in hospital to see what their opinion is. They are not mildly high, they are extremely high. He is only on IV fluids and Norvasc 2.5 for blood pressure. He is comfortable in bed. No chest pain or shortness of breath. No abdominal pain. He is eating, going to the bathroom, he has no side effects. . PHYSICAL EXAMINATION: VITAL SIGNS: He has 97.2 temp, 69 pulse, 112/72 blood pressure, 18 respiratory, rate and 97% O2 sat on room air. HEENT: Head is normocephalic, atraumatic. HEART: Regular rate. LUNGS: Clear to auscultation. ABDOMEN: Soft, obese, nontender, positive bowel sounds. EXTREMITIES: No edema. LABORATORY DATA: He has 135 sodium, potassium 4.5. BUN is 43, creatinine 1.9, little bit high and little bit low, it is baseline. GFR is 36, sugar is 110, calcium is better at 9.9. His total bili is 1.2, but his AST is 669, ALT is 105, and ALP is 55, total protein is 7.8. INR is 1.06. White count is 11.7, hemoglobin 13, hematocrit 38.8, platelets of 180. Ordered ultrasound of the abdomen; attention: renal and liver. If it is okay with Renal and GI, we will discharge him later for outpatient followup. We will do that and we will keep him plan for today. Myron Chaudhary DO MTDD
[2018-01-14 08:51] VITALS: BP 124/67; PULSE 77; RESP 18; TEMP 98.9; O2SAT 96
[2018-01-14] MEDS ORDERED: Cholecalciferol 1,000 INTLU TAB PO SCH (10:00)
[2018-01-14 11:50] LABS: ALBUMIN (PEP) 3.7 g/dL (3.8-4.8); ALPHA-1-GLOBULIN (PEP) 0.3 g/dL (0.2-0.3)
--- NOTE | 2018-01-15 03:11 | DS ---
SUBJECTIVE: He slept well last night. He is feeling well. He is hungry. He is doing well. No complaints. PHYSICAL EXAMINATION: VITAL SIGNS: He has 97.9 temp, 73 pulse, 101/71 blood pressure, 19 respiratory rate, and 94% O2 sat on room air. HEENT: Head is atraumatic, normocephalic. HEART: Regular rate. LUNGS: Clear to auscultation. ABDOMEN: Soft. EXTREMITIES: No edema. MEDICATIONS: He is on Norvasc 2.5 one daily. He is on vitamin D now, 2000 international units daily and IV fluids. LABORATORY DATA: He has 135 sodium, potassium 4.3, BUN 36, creatinine 1.6, better. GFR is up to 43. His total bili is 1.1, his AST is down to 248, ALT is down to 71, alk phos is 43, total creatine kinase is down to 1346 and the CPK percent is 2.6, total protein 6.4. His white count is 8, hemoglobin 11.2, hematocrit 34.1, platelets of 136. ASSESSMENT AND PLAN: He was being seen by GI, Cardiology, and He was here for hypertension, rhabdomyolysis, renal insufficiency, high calcium, low vitamin D, needed extra intravenous fluids. I think he will be discharged today, now that the liver function test and the CPK has made a drastic turn to get lower. He will be encouraged to drink lots and lots of water to help his acute kidney injury and his rhabdomyolysis. I will follow up on the outpatient and he is definitely improved. Myron Chaudhary DO MTDRommel
[2018-01-17 01:01] LABS: ALDO/PRA RATIO 2.5 Ratio (0.9-28.9)
== END 2018-01-14 13:51 | disposition home or self-care (01) | DRG 683 ==
LOC: ED 15:08 → ERH 19:57 → 3RNO 22:18 → OBSVTOIN 01-13 11:16
PROVIDERS: ADMIT Family Medicine; ATTEND Family Medicine
DX: N17.9 Acute kidney failure, unspecified (principal); I16.1 Hypertensive emergency; M62.82 Rhabdomyolysis; E83.52 Hypercalcemia; I12.9 Hypertensive chronic kidney disease with stage 1 through stage 4 chronic kidney disease, or unspecified chronic kidney disease; N18.9 Chronic kidney disease, unspecified; R42 Dizziness and giddiness; R73.03 Prediabetes; Z86.73 Personal history of transient ischemic attack (TIA), and cerebral infarction without residual deficits

== ENCOUNTER 2018-01-18 13:17 | Inpatient (IN) | payer MEDICARE, OTHER ==
--- NOTE | 2018-01-18 13:24 | ED PDOC ---
Arrival/HPI - General Time Seen by Provider: 01/18/18 13:21 Historian: Patient, Spouse - History of Present Illness Narrative History of Present Illness (Text): 01/18/18 13:21 A 67 year old male presents to the emergency department complaining of shortness of breath since this morning. reports a non-productive cough for 3 days and mild bilateral lower extremity swelling since yesterday. She notes his shortness of breath began suddenly this morning while sitting down watching television. Patient denies any fever, chills, nausea, vomiting, abdominal pain, chest pain, rash or any other complaints. Patient did not receive the flu shot. PMD: None Time/Duration: Other (this morning) Symptom Course: Unchanged Context: Home Past Medical History - Provider Review Nursing Documentation Reviewed: Yes - Cardiac Hx Cardiac Disorders: Yes Hx Hypertension: Yes - Pulmonary Hx Respiratory Disorders: No - Neurological Hx Neurological Disorder: Yes Hx Transient Ischemic Attacks (TIA): Yes - HEENT Hx HEENT Disorder: No - Renal Hx Renal Disorder: No - Endocrine/Metabolic Hx Endocrine Disorders: No - Hematological/Oncological Hx Blood Disorders: No - Integumentary Hx Dermatological Disorder: No - Musculoskeletal/Rheumatological Hx Musculoskeletal Disorders: No Hx Falls: No - Gastrointestinal Hx Gastrointestinal Disorders: No - Genitourinary/Gynecological Hx Genitourinary Disorders: No - Psychiatric Hx Psychophysiologic Disorder: No Hx Substance Use: No - Surgical History Hx Appendectomy: Yes Family/Social History - Physician Review Nursing Documentation Reviewed: Yes Family/Social History: No Known Family HX Smoking Status: Never Smoked Hx Alcohol Use: No Hx Substance Use: No Allergies/Home Meds Allergies/Adverse Reactions: Allergies No Known Allergies Allergy (Verified 01/18/18 13:33) Review of Systems - Physician Review All systems were reviewed & negative as marked: Yes - Review of Systems Constitutional: absent: Fevers, Night Sweats Respiratory: SOB, Cough. absent: Sputum Cardiovascular: absent: Chest Pain Gastrointestinal: absent: Abdominal Pain, Nausea, Vomiting Musculoskeletal: Other (Bilateral lower extremity swelling) Skin: absent: Rash Physical Exam Vital Signs Reviewed: Yes Vital Signs Temp Pulse Resp BP Pulse Ox 01/18/18 15:17 115 H 26 H 144/95 H 98 01/18/18 14:45 118 H 26 H 141/97 H 99 01/18/18 14:42 118 H 141/97 H 01/18/18 14:35 141/94 H 01/18/18 14:25 118 H 24 144/94 H 98 01/18/18 13:36 97.5 F L 130 H 22 149/92 H 98 Temperature: Afebrile Blood Pressure: Hypertensive Pulse: Tachycardic Respiratory Rate: Normal Appearance: Positive for: Well-Appearing, Non-Toxic, Uncomfortable Pain Distress: None Mental Status: Positive for: Alert and Oriented X 3 - Systems Exam Head: Present: Atraumatic, Normocephalic Pupils: Present: PERRL Extroacular Muscles: Present: EOMI Conjunctiva: Present: Normal Mouth: Present: Moist Mucous Membranes Neck: Present: Normal Range of Motion Respiratory/Chest: Present: Wheezes, Decreased Breath Sounds, Tachypneic. No: Respiratory Distress, Accessory Muscle Use Cardiovascular: Present: Regular Rate and Rhythm, Normal S1, S2. No: Murmurs Abdomen: Present: Normal Bowel Sounds. No: Tenderness, Distention, Peritoneal Signs Back: Present: Normal Inspection Upper Extremity: Present: Normal Inspection. No: Cyanosis, Edema Lower Extremity: Present: Normal Inspection. No: Edema, CALF TENDERNESS Neurological: Present: GCS=15, CN II-XII Intact, Speech Normal Skin: Present: Warm, Dry, Normal Color. No: Rashes Psychiatric: Present: Alert, Oriented x 3, Normal Insight, Normal Concentration Medical Decision Making ED Course and Treatment: 01/18/18 13:21 Impression: A 67 year old male with shortness of breath. notes nonproductive cough and bilateral lower extremity swelling. Differential Diagnosis included but are not limited to: Bronchial asthma vs. New onset CHF vs. ACS Plan: -- Chest xray -- EKG -- Labs -- Blood and Urine culture -- Urinalysis -- Duoneb and Solumedrol -- Reassess and disposition Progress Notes: EKG shows sinus tachycardia at 112 BPM with Q waves and mild ST-segment elevations in leads III and avF, ST-segment depressions in V2-V6, with similar findings compared to prior on 01/11/18. Interpreted by me. 01/18/18 13:35 EKG findings discussed with nuclear power plant engineer Dr. Stallings, who states it is not an acute VA and there is no need to activate a code heart. Recommends Aspirn and heparin at this time. Report Date : 01/18/2018 14:15:11 Procedure: Chest xray Dictator : Mariusz Miles MD IMPRESSION: There is vascular congestion with perihilar infiltrates. The pattern is most consistent with CHF. Pneumonia cannot be excluded CXR most consistent with CHF. Lasix and Nitro past ordered. Nitro drip ordered. Patient already improving on BiPAP. 10/30 Fi02 40% RR 14 . Also since patient had a history of cough with respiratory distress and can't r/o infiltrates on CXR he was treated empirically with Vanco and Zosyn. WBC in CBC was normal. LA elevated but most likely due to CHF. 01/18/18 14:43 Dr. Cleveland paged for Cardiology. Pending call back. 01/18/18 14:58 Case was discussed with Dr. Cleveland, Waist Fitter, who recommends Aspirin and instead of heparin to give lovenox. He recommended the CCU. He also recommended Plavix 600mg PO. Case was discussed with Dr. Chaudhary who recommend Dr. Cleveland and Dr. Gillette for Pulmonary. Case discussed with Dr. Antony who accepted the patient to the unit. - Critical Care Critical Care Minutes: 60 minutes - Lab Interpretations Lab Results: 01/18/18 13:25 01/18/18 13:25 Lab Results 01/18/18 14:45: pCO2 29 L, pO2 89.0, HCO3 19.7 L, ABG pH 7.44, ABG Total CO2 20.6 L, ABG O2 Saturation 98.4 H, ABG O2 Content 16.5, ABG Base Excess -3.4 L, ABG Hemoglobin 12.2, ABG Carboxyhemoglobin 1.8 H, POC ABG HHb (Measured) 1.6, ABG Methemoglobin 0.7, ABG O2 Capacity 16.8, Hgb O2 Saturation 95.9, FiO2 40.0 01/18/18 14:20: pO2 37, VBG pH 7.26 L, VBG pCO2 52.0, VBG HCO3 23.3, VBG Total CO2 24.9, VBG O2 Sat (Calc) 71.2 H, VBG Base Excess -4.3 L, VBG Potassium 3.6, Glucose 152 H, Lactate 4.1 H*, FiO2 21.0, Sodium 136.0, Chloride 103.0, Venous Blood Potassium 3.6 01/18/18 13:25: Sodium 141, Potassium 3.7, Chloride 103, Carbon Dioxide 23, Anion Gap 19, BUN 24 H, Creatinine 1.3, Est GFR ( Amer) > 60, Est GFR ( Non-Af Amer) 55, Random Glucose 116 H, Calcium 9.7, Total Bilirubin 0.9, AST 54 , ALT 62 H, Alkaline Phosphatase 52, Lactate Dehydrogenase 1543 H, Total Creatine Kinase 378 H, CK-MB (CK-2) 6.6 H, CK-MB (CK-2) % 1.7 L, Troponin I 4.56 H* D, NT-Pro-B Natriuret Pep 7540 H, Total Protein 7.3, Albumin 3.8, Globulin 3.5, Albumin/Globulin Ratio 1.1 01/18/18 13:25: PT 14.2 H, INR 1.23 H, APTT 27.3 01/18/18 13:25: WBC 10.2 D, RBC 4.27, Hgb 13.0 L, Hct 38.4 L, MCV 89.9, MCH 30.4, MCHC 33.9, RDW 13.6, Plt Count 201, MPV 11.2 H, Gran % 62.8, Lymph % (Auto ) 25.1, [place] % (Auto) 8.6 H, Eos % (Auto) 3.3, Baso % (Auto) 0.2, Gran # 6.42, Lymph # (Auto) 2.6, [place] # (Auto) 0.9 H, Eos # (Auto) 0.3, Baso # (Auto) 0.02 I have reviewed the lab results: Yes - RAD Interpretation Radiology Orders: 01/18/18 13:23 CHEST PORTABLE [RAD] Stat - Medication Orders Current Medication Orders: Vancomycin HCl (Vancomycin 1gm) 1 gm in 250 mls @ 167 mls/hr IVPB STAT STA PRN Reason: Protocol Stop: 01/18/18 15:45 Last Admin: 01/18/18 15:31 Dose: 167 mls/hr eMAR Start Stop Document 01/18/18 15:31 SRE (Rec: 01/18/18 15:32 SRE [id number]) Intravenous Solution Start Date 01/18/18 Start Time 15:31 End Date 01/18/18 End time 17:00 Total Infusion Time 89 Nitroglycerin/Dextrose (Nitroglycerin 50 Mg/250 Ml D5w) 50 mg in 250 mls @ 1.5 mls/hr IV .Q24H PRN; Protocol; 5 MCG/MIN PRN Reason: Shortness of Breath Last Admin: 01/18/18 14:42 Dose: 1.5 mls/hr eMAR Start Stop Document 01/18/18 14:42 SRE (Rec: 01/18/18 14:48 SRE [id number]) Intravenous Solution Start Date 01/18/18 Start Time 14:45 MAR Pulse and Blood Pressure Document 01/18/18 14:42 SRE (Rec: 01/18/18 14:48 SRE [id number]) Pulse Pulse Rate (60-90) 118 Blood Pressure Blood Pressure (100/60-150/90) 141/97 Discontinued Medications Albuterol/Ipratropium (Duoneb 3 Mg/0.5 Mg (3 Ml) Ud) 3 ml IH Q15M DON Stop: 01/18/18 14:01 Last Admin: 01/18/18 14:00 Dose: 3 ml Aspirin (Aspirin Chewable) 324 mg PO STAT STA Stop: 01/18/18 14:57 Last Admin: 01/18/18 15:30 Dose: 324 mg Clopidogrel Bisulfate (Plavix) 600 mg PO STAT STA Stop: 01/18/18 14:51 Last Admin: 01/18/18 15:30 Dose: 600 mg Enoxaparin Sodium (Lovenox) 70 mg SC STAT STA PRN Reason: Protocol Stop: 01/18/18 14:54 Last Admin: 01/18/18 15:30 Dose: 70 mg Subcutaneous Administrations Document 01/18/18 15:30 SRE (Rec: 01/18/18 15:31 SRE [id number]) Injection Site MAR Injection Site Left Abdomen Charges for Administration # of Subcutaneous Administrations 1 Furosemide (Lasix) 40 mg IVP STAT STA Stop: 01/18/18 14:24 Last Admin: 01/18/18 14:35 Dose: 40 mg MAR Blood Pressure Document 01/18/18 14:35 SRE (Rec: 01/18/18 14:49 SRE [id number]) Blood Pressure Blood Pressure (100/60-150/90) 141/94 IVP Administration Document 01/18/18 14:35 SRE (Rec: 01/18/18 14:49 SRE [id number]) Charges for Administration # of IVP Administrations 1 Piperacillin Sod/Tazobactam Sod (Zosyn 4.5 Gm In Ns 100ml) 4.5 gm in 100 mls @ 200 mls/hr IVPB STAT STA PRN Reason: Protocol Stop: 01/18/18 14:45 Last Admin: 01/18/18 14:35 Dose: 200 mls/hr eMAR Start Stop Document 01/18/18 14:35 SRE (Rec: 01/18/18 14:50 SRE [id number]) Intravenous Solution Start Date 01/18/18 Start Time 14:35 End Date 01/18/18 End time 15:35 Total Infusion Time 60 Methylprednisolone (Solu-Medrol) 125 mg IVP STAT STA Stop: 01/18/18 13:23 Last Admin: 01/18/18 13:34 Dose: 125 mg IVP Administration Document 01/18/18 13:34 SRE (Rec: 01/18/18 13:35 SRE [id number]) Charges for Administration # of IVP Administrations 1 Nitroglycerin (Nitro-Bid 2% Oint) 1 ea TOP STAT STA Stop: 01/18/18 14:28 Last Admin: 01/18/18 14:31 Dose: 1 ea - Scribe Statement The provider has reviewed the documentation as recorded by the Annabellaibphilipp York Provider Scribe Attestation: All medical record entries made by the Scribe were at my direction and personally dictated by me. I have reviewed the chart and agree that the record accurately reflects my personal performance of the history, physical exam, medical decision making, and the department course for this patient. I have also personally directed, reviewed, and agree with the discharge instructions and disposition. Disposition/Present on Arrival - Present on Arrival Any Indicators Present on Arrival: No History of DVT/PE: No History of Uncontrolled Diabetes: No Urinary Catheter: No History Surgical Site Infection Following: None - Disposition Have Diagnosis and Disposition been Completed?: Yes Diagnosis: Congestive heart failure, NSTEMI (non-ST elevated myocardial infarction) Disposition: HOSPITALIZED Disposition Time: 15:01 Patient Plan: ICU Patient Problems: Current Active Problems Problem Status Onset Congestive heart failure Acute NSTEMI (non-ST elevated myocardial infarction) Acute Condition: CRITICAL Discharge Instructions (ExitCare): Heart Failure (ED) Referrals: Myron Chaudhary, DO [Primary Care Provider] - Follow up with primary
[2018-01-18] MEDS: Albuterol-Ipratrop 3 mg / 0.5 (3 ml) UD IH SCH ×3 (13:25→14:00)
[2018-01-18] MEDS ORDERED: Albuterol-Ipratrop 3 mg / 0.5 (3 ml) UD ONE (13:25)
[2018-01-18 13:50] LABS: BASO # 0.02 K/mm3 (0.0-2.0); BASO % 0.2 % (0.0-3.0); EOS # 0.3 (0.0-0.7); EOS % 3.3 % (1.5-5.0); GRAN # 6.42 (1.4-6.5); GRAN % 62.8 % (50.0-68.0); LYMPH # 2.6 (1.2-3.4); LYMPH % 25.1 % (22.0-35.0); MEAN CELL VOLUME 89.9 fl (80.0-105.0); MEAN CORPUSCULAR HEMOGLOBIN 30.4 pg (25.0-35.0); MEAN CORPUSCULAR HGB CONC 33.9 g/dl (31.0-37.0); MEAN PLATELET VOLUME 11.2 fl (7.0-11.0); MONO # 0.9 (0.1-0.6); MONO % 8.6 % (1.0-6.0); RBC 4.27 10^6/uL (3.5-6.1); RED CELL DISTRIBUTION WIDTH 13.6 % (11.5-14.5); WHITE BLOOD COUNT 10.2 10^3/ul (4.5-11.0)
[2018-01-18 14:01] LABS: ALB/GLOB RATIO 1.1 (1.1-1.8); ALBUMIN 3.8 g/dL (3.0-4.8); ALT/SGPT 62 U/L (7-56); AST/SGOT 54 U/L (17-59); BLOOD UREA NITROGEN 24 mg/dL (7-21); CALCIUM 9.7 mg/dL (8.4-10.5); GFR AFRICAN-AMERICAN > 60; GFR NON-AFRICAN AMERICAN 55
[2018-01-18 14:08] LABS: INR 1.23 (0.93-1.08); PARTIAL THROMBOPLASTIN TIME 27.3 Seconds (25.1-36.5); PROTHROMBIN TIME 14.2 SECONDS (9.4-12.5)
[2018-01-18] MEDS ORDERED: Piperacill/Tazo 4.5gm in NS 4.5 GM/100 ML BAG IVPB STA (14:16)
[2018-01-18] MEDS ORDERED: Vancomycin 1gm in NS 250ml 1 GM/250 ML BAG IVPB STA (14:16)
--- NOTE | 2018-01-18 14:16 | RAD ---
HISTORY: cough r/o pna r/o CHF COMPARISON: No prior. FINDINGS: LUNGS: There is vascular congestion with perihilar infiltrates. The pattern is most consistent with CHF. Pneumonia cannot be excluded PLEURA: No significant pleural effusion identified, no pneumothorax apparent. CARDIOVASCULAR: Normal. OSSEOUS STRUCTURES: No significant abnormalities. VISUALIZED UPPER ABDOMEN: Normal. OTHER FINDINGS: None. IMPRESSION: There is vascular congestion with perihilar infiltrates. The pattern is most consistent with CHF. Pneumonia cannot be excluded
[2018-01-18] MEDS ORDERED: Nitroglycerin 50mg in D5W 50 MG/250 ML BOTTLE IV PRN (14:26)
[2018-01-18] MEDS ORDERED: Nitroglycerin 2% Ointment Foilpak UD TOP STA (14:27)
[2018-01-18 14:37] LABS: VENOUS BLOOD GAS BASE EXCESS -4.3 mmol/L (0.0-2.0); VENOUS BLOOD GAS PO2 37 mm/Hg (30-55); VENOUS BLOOD PH 7.26 (7.32-7.43)
[2018-01-18 14:37] LABS: B-TYPE NATRIURETIC PEPTIDE 7540 pg/mL (0-450); CK MB% 1.7 % (2.5-3.0); CK-MB 6.6 ng/mL (0.0-3.6); TROPONIN I 4.56 ng/mL
[2018-01-18] MEDS ORDERED: Enoxaparin 80 mg Syringe SC STA (14:53)
[2018-01-18 14:54] LABS: ARTERIAL BLOOD GAS HCO3 19.7 mmol/L (21-28); ARTERIAL BLOOD GAS HEMOGLOBIN 12.2 g/dL (11.7-17.4); ARTERIAL BLOOD GAS O2 CAPACITY 16.8 mL/dl (16-24); ARTERIAL BLOOD GAS O2 CONTENT 16.5 ML/dl (15-23); ARTERIAL BLOOD GAS O2 SAT 98.4 % (95-98); ARTERIAL BLOOD GAS PCO2 29 mm/Hg (35-45); ARTERIAL BLOOD GAS PH 7.44 (7.35-7.45); ARTERIAL BLOOD GAS TCO2 20.6 mmol.L (22-28)
--- NOTE | 2018-01-18 15:34 | CP.PCM.CON ---
History of Present Illness - History of Present Illness History of Present Illness: Critical Care Consult Note HPI: Patient is 67yo primarily Azeri speaking only, with PMhx of HTN, presents with sudden onset of SOB. Pt reports SOB was sudden onset, asosciated with 3 days of cough, dry non productive. Denies fever, chills, chest pain, palpitations, HAYES, dizziness, sick contacts. Pt was initially noted to be in resp distress, placed on BIPAP and given Lasix IV and Solumedrol. Pt is currently AAOx3, NAD, comfortable, reports his breathing is significantly better. PMHx as above PSHx as above Allergies NKDA Meds as per EMR ROS as above FHx NC Review of Systems - Review of Systems Review of Systems: as per HPI Past Patient History - Infectious Disease Hx of Infectious Diseases: None - Past Social History Smoking Status: Never Smoked - CARDIAC Hx Cardiac Disorders: Yes Hx Hypertension: Yes - PULMONARY Hx Respiratory Disorders: No - NEUROLOGICAL Hx Neurological Disorder: Yes Hx Transient Ischemic Attacks (TIA): Yes - HEENT Hx HEENT Problems: No - RENAL Hx Chronic Kidney Disease: No - ENDOCRINE/METABOLIC Hx Endocrine Disorders: No - HEMATOLOGICAL/ONCOLOGICAL Hx Blood Disorders: No - INTEGUMENTARY Hx Dermatological Problems: No - MUSCULOSKELETAL/RHEUMATOLOGICAL Hx Musculoskeletal Disorders: No Hx Falls: No - GASTROINTESTINAL Hx Gastrointestinal Disorders: No - GENITOURINARY/GYNECOLOGICAL Hx Genitourinary Disorders: No - PSYCHIATRIC Hx Psychophysiologic Disorder: No Hx Substance Use: No - SURGICAL HISTORY Hx Appendectomy: Yes - ANESTHESIA Hx Anesthesia Reactions: No Meds Allergies/Adverse Reactions: Allergies Allergy/AdvReac Type Severity Reaction Status Date / Time No Known Allergies Allergy Verified 01/18/18 13:33 - Medications Medications: Current Medications Vancomycin HCl (Vancomycin 1gm) 1 gm in 250 mls @ 167 mls/hr IVPB STAT STA PRN Reason: Protocol Stop: 01/18/18 15:45 Nitroglycerin/Dextrose (Nitroglycerin 50 Mg/250 Ml D5w) 50 mg in 250 mls @ 1.5 mls/hr IV .Q24H PRN; Protocol; 5 MCG/MIN PRN Reason: Shortness of Breath Last Admin: 01/18/18 14:42 Dose: 1.5 mls/hr Physical Exam - Constitutional Appears: Non-toxic, No Acute Distress - Head Exam Head Exam: NORMAL INSPECTION - Eye Exam Eye Exam: Normal appearance - ENT Exam ENT Exam: Mucous Membranes Moist - Neck Exam Neck exam: Positive for: Full Rom - Respiratory Exam Respiratory Exam: Decreased Breath Sounds, Rales, NORMAL BREATHING PATTERN - Cardiovascular Exam Cardiovascular Exam: Tachycardia, REGULAR RHYTHM, +S1, +S2 - GI/Abdominal Exam GI & Abdominal Exam: Normal Bowel Sounds, Soft - Extremities Exam Extremities exam: Positive for: pedal edema - Neurological Exam Neurological exam: Alert, Oriented x3 Results - Vital Signs Recent Vital Signs: Last Vital Signs Temp 97.5 F L 01/18/18 13:36 Pulse 115 H 01/18/18 15:17 Resp 26 H 01/18/18 15:17 BP 144/95 H 01/18/18 15:17 Pulse Ox 98 01/18/18 15:17 - Labs Result Diagrams: 01/18/18 13:25 01/18/18 13:25 Labs: Laboratory Results - last 24 hr 01/18/18 01/18/18 01/18/18 13:25 13:25 13:25 WBC 10.2 D RBC 4.27 Hgb 13.0 L Hct 38.4 L MCV 89.9 MCH 30.4 MCHC 33.9 RDW 13.6 Plt Count 201 MPV 11.2 H Gran % 62.8 Lymph % (Auto) 25.1 [place] % (Auto) 8.6 H Eos % (Auto) 3.3 Baso % (Auto) 0.2 Gran # 6.42 Lymph # (Auto) 2.6 [place] # (Auto) 0.9 H Eos # (Auto) 0.3 Baso # (Auto) 0.02 PT 14.2 H INR 1.23 H APTT 27.3 pCO2 pO2 HCO3 ABG pH ABG Total CO2 ABG O2 Saturation ABG O2 Content ABG Base Excess ABG Hemoglobin ABG Carboxyhemoglobin POC ABG HHb (Measured) ABG Methemoglobin ABG O2 Capacity VBG pH VBG pCO2 VBG HCO3 VBG Total CO2 VBG O2 Sat (Calc) VBG Base Excess VBG Potassium Hgb O2 Saturation Glucose Lactate FiO2 Sodium 141 Potassium 3.7 Chloride 103 Carbon Dioxide 23 Anion Gap 19 BUN 24 H Creatinine 1.3 Est GFR ( Amer) > 60 Est GFR (Non-Af Amer) 55 Random Glucose 116 H Calcium 9.7 Total Bilirubin 0.9 AST 54 ALT 62 H Alkaline Phosphatase 52 Lactate Dehydrogenase 1543 H Total Creatine Kinase 378 H CK-MB (CK-2) 6.6 H CK-MB (CK-2) % 1.7 L Troponin I 4.56 H* D NT-Pro-B Natriuret Pep 7540 H Total Protein 7.3 Albumin 3.8 Globulin 3.5 Albumin/Globulin Ratio 1.1 Venous Blood Potassium 01/18/18 01/18/18 14:20 14:45 WBC RBC Hgb Hct MCV MCH MCHC RDW Plt Count MPV Gran % Lymph % (Auto) [place] % (Auto) Eos % (Auto) Baso % (Auto) Gran # Lymph # (Auto) [place] # (Auto) Eos # (Auto) Baso # (Auto) PT INR APTT pCO2 29 L pO2 37 89.0 HCO3 19.7 L ABG pH 7.44 ABG Total CO2 20.6 L ABG O2 Saturation 98.4 H ABG O2 Content 16.5 ABG Base Excess -3.4 L ABG Hemoglobin 12.2 ABG Carboxyhemoglobin 1.8 H POC ABG HHb (Measured) 1.6 ABG Methemoglobin 0.7 ABG O2 Capacity 16.8 VBG pH 7.26 L VBG pCO2 52.0 VBG HCO3 23.3 VBG Total CO2 24.9 VBG O2 Sat (Calc) 71.2 H VBG Base Excess -4.3 L VBG Potassium 3.6 Hgb O2 Saturation 95.9 Glucose 152 H Lactate 4.1 H* FiO2 21.0 40.0 Sodium 136.0 Potassium Chloride 103.0 Carbon Dioxide Anion Gap BUN Creatinine Est GFR ( Amer) Est GFR (Non-Af Amer) Random Glucose Calcium Total Bilirubin AST ALT Alkaline Phosphatase Lactate Dehydrogenase Total Creatine Kinase CK-MB (CK-2) CK-MB (CK-2) % Troponin I NT-Pro-B Natriuret Pep Total Protein Albumin Globulin Albumin/Globulin Ratio Venous Blood Potassium 3.6 - Imaging and Cardiology Chest x-ray Status: Image reviewed by me, Report reviewed by me Assessment & Plan - Assessment and Plan (Free Text) Assessment: Pt is 67yo male a/w CHF, NSTEMI, PNA CHF NSTEMI PNA Resp Failure, on BIPAP HTN - currently afebrile, HD stable, comfortable on Nitro gtt, on BIPAP 12/5/40%, comfortable in NAD - labs and imaging reviewed, noted for elevated proBNP, LDH, and troponin, EKG with ischemic changes in ant-lat leads - CXR with pulm vascular congestion, possible LLL infiltrate Recommend: - cont with BIPAP as tolerated, ABG acceptable, titrate off BIPAP as tolerated - Panculture, UCx, BCx, Procal - Rocephin, Azithro - Cont with Nitro drip - Lasix 40mg TID IV - ECHO - ASA, Plavix, Statin, Lovenox - hold BB for now - Cardiology eval, cath tomorrow - repeat cardiac enzymes - GI ppx - DVT ppx, Lovenox - Admit to CCU critical care time 40 minutes
[2018-01-18] MEDS ORDERED: Vancomycin 1gm in NS 250ml 1 GM/250 ML BAG IVPB SCH (15:45)
[2018-01-18] MEDS: Enoxaparin 80 mg Syringe SC SCH (16:11)
[2018-01-18] MEDS: MethylPREDNISolone 40 mg Vial IVP SCH (16:11)
[2018-01-18] MEDS: Metoprolol Succinate 25 mg XL Tab PO SCH (16:16)
[2018-01-18 16:36] LABS: URINE BILIRUBIN NEGATIVE (NEGATIVE); URINE BLOOD NEGATIVE (NEGATIVE); URINE GLUCOSE (UA) NEGATIVE (NEGATIVE); URINE LEUKOCYTE ESTERASE NEGATIVE Leu/uL (NEGATIVE); URINE NITRATE NEGATIVE (NEGATIVE); URINE PROTEIN NEGATIVE mg/dL (<30 mg/dL); URINE UROBILINOGEN 0.2 E.U./dL (<1 E.U./dL)
[2018-01-18 16:38] LABS: URINE APPEARANCE CLEAR (CLEAR); URINE COLOR YELLOW (YELLOW)
[2018-01-18 17:52] LABS: VENOUS BLOOD GAS BASE EXCESS -1.1 mmol/L (0.0-2.0); VENOUS BLOOD GAS PO2 49 mm/Hg (30-55); VENOUS BLOOD PH 7.37 (7.32-7.43)
[2018-01-18] MEDS ORDERED: Piperacill/Tazo 4.5gm in NS 4.5 GM/100 ML BAG IVPB SCH (18:00)
--- NOTE | 2018-01-18 19:40 | CARD ---
APPROVED REPORT EKG Measurement Heart [id number] <Conclusion> Sinus Tachycardia with PVCs Inferior-posterior infarct, possibly acute ST & T wave abnormality, consider lateral ischemia ACUTE SD Consider right ventricular involvement in acute inferior infarct Abnormal ECG
[2018-01-19] MEDS: MethylPREDNISolone 40 mg Vial IVP SCH (00:10)
[2018-01-19 00:49] VITALS: BMI 26.4
--- NOTE | 2018-01-19 01:06 | HP ---
HISTORY OF PRESENT ILLNESS: I was called by the emergency room doctor to come down and see him. This is a 67-year-old man, who I know from the office, who is not doing well, who comes in very short of breath. He has a productive cough for 3 days, bilateral lower extremity swelling for about 24 hours, also shortness of breath started this morning while he was sitting and watching television. His blood pressure has been doing better with the new antihypertensive medications he has been on. PAST MEDICAL HISTORY: Hypertension, TIA, and appendectomy. FAMILY HISTORY: No known family history. SOCIAL HISTORY: Never smoked. No alcohol. No drugs. ALLERGIES: HE HAS NO KNOWN DRUG ALLERGIES. REVIEW OF SYSTEMS: No acute vision changes. No acute hearing changes. No sore throat. No chest pain. No abdominal pain, nausea or vomiting. He has got shortness of breath, cough, wheezing, and swelling of the lower extremities. No rashes or ulcers that he could tell on his legs. Not anxious. PHYSICAL EXAMINATION: VITAL SIGNS: He has 95.5 temperature, 130 pulse, 26 respiratory rate, 141/97 blood pressure, and 98% O2 sat on room air. He is well appearing on BiPAP right now, much better after diuresing. HEENT: Head is atraumatic, normocephalic. Pupils equal, reactive to light. Throat is dry. NECK: Supple. Thyroid midline. HEART: Regular rate. Normal S1, S2. LUNGS: Decreased breath sounds, very tight and also decreased breath sounds with wheezes expiratory. ABDOMEN: Soft, nontender. Positive bowel sounds. EXTREMITIES: +1/4 pitting edema. NEUROLOGIC: GCS is 15. Cranial nerves II through XII grossly intact. Speech is normal. Alert and oriented x3. SKIN: Warm and dry. No rashes or ulcers appreciated. LYMPH NODES: No palpable appreciable lymphadenopathy. LABORATORY DATA: He has a 10.2 white count, 13 hemoglobin, 38.4 hematocrit with a 201 platelets. 1.22 INR. Lactate is 4.1. He has a 141 sodium, potassium 3.7, BUN 24, creatinine 1.3, GFR is 55, sugar is 116. Calcium is 9.7. Total bili is 0.9. AST is 54, ALT is 62, alkaline phosphatase 62. Lactate dehydrogenase is 1543. Total creatinine kinase 378. Troponin is 4.56. BNP of 7540. Total protein is 7.3. He is having a few issues going on right now. He is going to go to the Intensive Care Unit. He has congestive heart failure, NSTEMI, and possible COPD. He has a consult with Pulmonary and Cardiology is planning to order a cardiac catheterization tomorrow. He is on aspirin, Lasix IV, Lovenox, nitroglycerin, Plavix, methylprednisolone, vancomycin, and Zosyn. Myron Chaudhary DO
[2018-01-19] MEDS: Enoxaparin 80 mg Syringe SC SCH (04:05)
[2018-01-19 04:57] LABS: HEMOGLOBIN 12.3 g/dL (14.0-18.0); MEAN CELL VOLUME 88.1 fl (80.0-105.0); MEAN CORPUSCULAR HEMOGLOBIN 29.9 pg (25.0-35.0); MEAN CORPUSCULAR HGB CONC 33.9 g/dl (31.0-37.0); MEAN PLATELET VOLUME 10.8 fl (7.0-11.0); RBC 4.12 10^6/uL (3.5-6.1); RED CELL DISTRIBUTION WIDTH 13.8 % (11.5-14.5); WHITE BLOOD COUNT 8.9 10^3/ul (4.5-11.0)
--- NOTE | 2018-01-19 05:12 | CON ---
DATE: 01/18/2018 CHIEF COMPLAINT: Shortness of breath times 1-2 days duration. HISTORY OF PRESENT ILLNESS: This is a 67-year-old Somali male with a history of hypertension, coronary artery disease, TIA, renal disease, history of appendectomy who is admitted now and seen in the emergency room, complaining of shortness of breath which is new onset for the past 2-3 days. No fevers, no chills. There is cough, nonproductive. No chest pain at this time. No abdominal pain, diarrhea or constipation. No dysuria or frequency. No headache. PAST MEDICAL HISTORY: Significant for hypertension, coronary artery disease, TIA, and renal disease. PAST SURGICAL HISTORY: Significant for appendectomy. ALLERGIES: NO KNOWN ALLERGIES. HOME MEDICATIONS: Amlodipine and vitamins. PHYSICAL EXAMINATION: GENERAL: The patient is in bed. VITAL SIGNS: Temperature of 98, heart rate of 115, respiratory rate 26, blood pressure is 130/90, saturation at 95%. HEENT: Examination of HEENT is unremarkable. NECK: Supple. LUNGS: Have decreased breath sounds. HEART: Normal S1, S2. ABDOMEN: Soft, nontender. LABORATORY DATA: Reveals a white count of 10,000, hemoglobin of 13, platelets of 201. Chemistries reveal a BUN of 24, creatinine of 1.3. Review of the creatinine from other visits reveal that last week, the patient's creatinine was 2.2, 2.1, 1.7. Urinalysis reveals negative protein and completely normal urinalysis. The patient's chest x-ray is consistent with congestive heart failure. EKG noted QTC of 444. ASSESSMENT AND PLAN: This is a 67-year-old Somali male, no recent travel, with hypertension, coronary artery disease, transient ischemic attack, renal disease, admitted with tachycardia, shortness of breath. The patient has systemic inflammatory response syndrome, most likely secondary to acute congestive heart failure, systolic versus diastolic, with non-ST elevation myocardial infarction, with ST and T-wave abnormalities and lateral ischemia with acute myocardial infarction. We will treat the patient with Rocephin and Zithromax, and order a procalcitonin and verdin cultures. Most probably all consistent with acute congestive heart failure with an elevated BNP. The patient is responding to diuresis with elevated troponins of 4.56. Recommended Cardiology evaluation and Pulmonary evaluation. We will make further recommendations. [place] MD [facility] # [id number]
[2018-01-19 05:38] LABS: ALBUMIN 3.7 g/dL (3.0-4.8); CALCIUM 9.9 mg/dL (8.4-10.5); TROPONIN I 5.96 ng/mL
--- NOTE | 2018-01-19 07:11 | CP.CCUPN ---
CCU Subjective - Physician Review Subjective (Free Text): Tito Wilks PGY1 ICU Progress Note for Dr. Soliman Patient was seen and examined at bedside. No acute overnight events. he states that he slept well using BiPAP and that he has not experienced any shortness of breath. denies chest pain, n/v or any fevers/chills. CCU Objective - Vital Signs / Intake & Output Vital Signs (Last 4 hours): Vital Signs Temp Pulse Resp BP Pulse Ox 01/19/18 06:00 79 18 131/86 97 01/19/18 05:00 77 17 124/90 97 01/19/18 04:00 98.4 F 79 18 130/95 H 96 Intake and Output (Last 8hrs): Intake & Output 01/18/18 01/19/18 01/19/18 22:59 06:59 14:59 Intake Total 206 Output Total 400 1000 Balance -400 -794 Weight 154 lb Intake: IV 6 Right Forearm 6 Oral 200 Output: Urine 400 1000 Condom 1000 - Physical Exam Head: Positive for: Atraumatic, Normocephalic Pupils: Positive for: PERRL Extroacular Muscles: Positive for: EOMI Conjunctiva: Positive for: Normal Mouth: Positive for: Moist Mucous Membranes Neck: Positive for: Normal Range of Motion Respiratory/Chest: Positive for: Clear to Auscultation, Decreased Breath Sounds. Negative for: Respiratory Distress, Accessory Muscle Use Cardiovascular: Positive for: Normal S1, S2, Tachycardic. Negative for: Murmurs Abdomen: Positive for: Normal Bowel Sounds. Negative for: Tenderness, Distention, Peritoneal Signs Back: Positive for: Normal Inspection Upper Extremity: Positive for: Normal Inspection. Negative for: Cyanosis, Edema Lower Extremity: Positive for: Normal Inspection. Negative for: Edema, CALF TENDERNESS Neurological: Positive for: GCS=15, CN II-XII Intact, Speech Normal Skin: Positive for: Warm, Dry, Normal Color. Negative for: Rashes Psychiatric: Positive for: Alert, Oriented x 3, Normal Insight, Normal Concentration - Medications Active Medications: Active Medications Generic Name Dose Route Start Last Admin Trade Name Freq PRN Reason Stop Dose Admin Aspirin 81 mg 01/19/18 10:00 Ecotrin PO DAILY DON Atorvastatin Calcium 40 mg 01/18/18 17:00 01/18/18 21:36 Lipitor PO 40 mg DIN DON Administration Azithromycin 500 mg 03/07/18 10:00 Zithromax PO 01/24/18 10:01 DAILY DON Protocol Enoxaparin Sodium 70 mg 01/18/18 15:45 01/19/18 04:05 Lovenox SC 70 mg Q12H DON Administration Protocol Furosemide 40 mg 01/18/18 22:00 01/18/18 23:00 Lasix IVP 40 mg Q12 DON Administration Nitroglycerin/Dextrose 50 mg in 250 mls @ 1.5 mls/hr 01/18/18 14:26 01/18/18 14:42 Nitroglycerin 50 Mg/250 Ml D5w IV 1.5 mls/hr .Q24H PRN Administration Shortness of Breath Protocol 5 MCG/MIN Ceftriaxone Sodium 1 gm in 100 mls @ 100 mls/hr 01/19/18 10:00 Rocephin 1 Gram Ivpb IVPB 01/26/18 10:01 DAILY DON Protocol Methylprednisolone 40 mg 01/18/18 15:45 01/19/18 00:10 Solu-Medrol IVP 40 mg Q8H DON Administration Metoprolol Succinate 12.5 mg 01/18/18 15:45 01/18/18 16:16 Toprol Xl PO 12.5 mg DAILY DON Administration Pantoprazole Sodium 40 mg 01/19/18 10:00 Protonix Ec Tab PO DAILY DON - Patient Studies Lab Studies: Lab Studies 01/19/18 01/19/18 01/18/18 Range/Units 04:25 04:25 23:00 WBC 8.9 (4.5-11.0) 10^3/ul RBC 4.12 (3.5-6.1) 10^6/uL Hgb 12.3 L (14.0-18.0) g/dL Hct 36.3 L (42.0-52.0) % MCV 88.1 (80.0-105.0) fl MCH 29.9 (25.0-35.0) pg MCHC 33.9 (31.0-37.0) g/dl RDW 13.8 (11.5-14.5) % Plt Count 200 (120.0-450.0) 10^3/uL MPV 10.8 (7.0-11.0) fl pO2 (30-55) mm/Hg VBG pH (7.32-7.43) VBG pCO2 (40-60) VBG HCO3 (21-28) mmol/l VBG Total CO2 (22-28) mmol.L VBG O2 Sat (Calc) (40-65) % VBG Base Excess (0.0-2.0) mmol/L VBG Potassium (3.6-5.2) mmol/L Sodium 138 (132-148) mmol/L Chloride 96 L (98-107) mmol/L Glucose (75-110) mg/dl Lactate (0.7-2.1) mmol/L FiO2 % Potassium 4.2 (3.6-5.0) mmol/L Carbon Dioxide 29 (21-33) mmol/L Anion Gap 17 (10-20) BUN 30 H (7-21) mg/dL Creatinine 1.6 H (0.8-1.5) mg/dl Est GFR ( Amer) 52 Est GFR (Non-Af Amer) 43 Random Glucose 144 H (70-110) mg/dL Calcium 9.9 (8.4-10.5) mg/dL Total Bilirubin 1.1 (0.2-1.3) mg/dL AST 64 H (17-59) U/L ALT 62 H (7-56) U/L Alkaline Phosphatase 52 (38-126) U/L Troponin I 5.96 H* D 4.59 H* ng/mL Total Protein 7.3 (5.8-8.3) g/dL Albumin 3.7 (3.0-4.8) g/dL Globulin 3.6 gm/dL Albumin/Globulin Ratio 1.0 L (1.1-1.8) Venous Blood Potassium (3.6-5.2) mmol/L Urine Color (YELLOW) Urine Appearance (CLEAR) Urine pH (4.7-8.0) Ur Specific [place] (1.005-1.035) Urine Protein (<30 mg/dL) mg/dL Urine Glucose (UA) (NEGATIVE) mg/dL Urine Ketones (NEGATIVE) mg/dL Urine Blood (NEGATIVE) Urine Nitrate (NEGATIVE) Urine Bilirubin (NEGATIVE) Urine Urobilinogen (<1 E.U./dL) E.U./dL Ur Leukocyte Esterase (NEGATIVE) Michelle/uL 03/06/18 03/06/18 Range/Units 17:40 16:15 WBC (4.5-11.0) 10^3/ul RBC (3.5-6.1) 10^6/uL Hgb (14.0-18.0) g/dL Hct (42.0-52.0) % MCV (80.0-105.0) fl MCH (25.0-35.0) pg MCHC (31.0-37.0) g/dl RDW (11.5-14.5) % Plt Count (120.0-450.0) 10^3/uL MPV (7.0-11.0) fl pO2 49 (30-55) mm/Hg VBG pH 7.37 (7.32-7.43) VBG pCO2 42.0 (40-60) VBG HCO3 24.3 (21-28) mmol/l VBG Total CO2 25.6 (22-28) mmol.L VBG O2 Sat (Calc) 87.4 H (40-65) % VBG Base Excess -1.1 L (0.0-2.0) mmol/L VBG Potassium 3.9 (3.6-5.2) mmol/L Sodium 135.0 (132-148) mmol/L Chloride 101.0 (98-107) mmol/L Glucose 147 H (75-110) mg/dl Lactate 2.8 H (0.7-2.1) mmol/L FiO2 21.0 % Potassium (3.6-5.0) mmol/L Carbon Dioxide (21-33) mmol/L Anion Gap (10-20) BUN (7-21) mg/dL Creatinine (0.8-1.5) mg/dl Est GFR ( Amer) Est GFR (Non-Af Amer) Random Glucose (70-110) mg/dL Calcium (8.4-10.5) mg/dL Total Bilirubin (0.2-1.3) mg/dL AST (17-59) U/L ALT (7-56) U/L Alkaline Phosphatase (38-126) U/L Troponin I ng/mL Total Protein (5.8-8.3) g/dL Albumin (3.0-4.8) g/dL Globulin gm/dL Albumin/Globulin Ratio (1.1-1.8) Venous Blood Potassium 3.9 (3.6-5.2) mmol/L Urine Color Yellow (YELLOW) Urine Appearance Clear (CLEAR) Urine pH 6.0 (4.7-8.0) Ur Specific [place] 1.010 (1.005-1.035) Urine Protein Negative (<30 mg/dL) mg/dL Urine Glucose (UA) Negative (NEGATIVE) mg/dL Urine Ketones Negative (NEGATIVE) mg/dL Urine Blood Negative (NEGATIVE) Urine Nitrate Negative (NEGATIVE) Urine Bilirubin Negative (NEGATIVE) Urine Urobilinogen 0.2 (<1 E.U./dL) E.U./dL Ur Leukocyte Esterase Negative (NEGATIVE) Michelle/uL Laboratory Results - last 24 hr 01/18/18 01/18/18 01/18/18 16:15 17:40 23:00 WBC RBC Hgb Hct MCV MCH MCHC RDW Plt Count MPV pO2 49 VBG pH 7.37 VBG pCO2 42.0 VBG HCO3 24.3 VBG Total CO2 25.6 VBG O2 Sat (Calc) 87.4 H VBG Base Excess -1.1 L VBG Potassium 3.9 Sodium 135.0 Chloride 101.0 Glucose 147 H Lactate 2.8 H FiO2 21.0 Potassium Carbon Dioxide Anion Gap BUN Creatinine Est GFR ( Amer) Est GFR (Non-Af Amer) Random Glucose Calcium Total Bilirubin AST ALT Alkaline Phosphatase Troponin I 4.59 H* Total Protein Albumin Globulin Albumin/Globulin Ratio Venous Blood Potassium 3.9 Urine Color Yellow Urine Appearance Clear Urine pH 6.0 Ur Specific [place] 1.010 Urine Protein Negative Urine Glucose (UA) Negative Urine Ketones Negative Urine Blood Negative Urine Nitrate Negative Urine Bilirubin Negative Urine Urobilinogen 0.2 Ur Leukocyte Esterase Negative 01/19/18 01/19/18 04:25 04:25 WBC 8.9 RBC 4.12 Hgb 12.3 L Hct 36.3 L MCV 88.1 MCH 29.9 MCHC 33.9 RDW 13.8 Plt Count 200 MPV 10.8 pO2 VBG pH VBG pCO2 VBG HCO3 VBG Total CO2 VBG O2 Sat (Calc) VBG Base Excess VBG Potassium Sodium 138 Chloride 96 L Glucose Lactate FiO2 Potassium 4.2 Carbon Dioxide 29 Anion Gap 17 BUN 30 H Creatinine 1.6 H Est GFR ( Amer) 52 Est GFR (Non-Af Amer) 43 Random Glucose 144 H Calcium 9.9 Total Bilirubin 1.1 AST 64 H ALT 62 H Alkaline Phosphatase 52 Troponin I 5.96 H* D Total Protein 7.3 Albumin 3.7 Globulin 3.6 Albumin/Globulin Ratio 1.0 L Venous Blood Potassium Urine Color Urine Appearance Urine pH Ur Specific [place] Urine Protein Urine Glucose (UA) Urine Ketones Urine Blood Urine Nitrate Urine Bilirubin Urine Urobilinogen Ur Leukocyte Esterase Review of Systems - Review of Systems All systems: reviewed and no additional remarkable complaints except (as per HPI ) Critical Care Progress Note - Extremities/Vascular Does the Patient have a Central Venous Catheter?: No Does the Patient need a Central Venous Catheter?: No Does the Patient have a Leach Catheter?: No Does the Patient need a Leach Catheter?: No - Prophylaxis GI Prophylaxis GI: PPI - Prophylaxis DVT Prophylaxis DVT: SCDs - Nutrition Nutrition: Nutrition Category Date Time Status Heart Healthy Diet [DIET] Diets 01/18/18 Dinner Ordered Assessment/Plan - Assessment and Plan (Free Text) Assessment: 67 yo M with a PMH of CHF, NSTEMI, pneumonia who presented with shortness of breath x1 day, found to have an acute IA with subsequent vascular congestion. Patient for cardiac cath today. Plan: Neuro: awake and alert, at baseline monitor for mental status changes Cardio: EKG showed sinus tachy @ 112, acute inferior posterior infarct w/ lateral ischemia cont Norvasc cont ASA and Plavix cont Lipitor Cont Plavix and post-cath, wait for cardio recs cont LAsix cont Metoprolol cont nitro drip Cardio consulted, recs appreciated Pulm: CXR consistent w/ vascular congestion and perihilar infiltrates followup CXR shows Troponin was uptrending, for cath today Cardio following BP stable BNP elevated on admission cont solu-medrol, taper Pulm consulted, recs appreciated GI: NPO for cath gi ppx Renal: monitor UOP monitor electrolytes mild BERE due to Lasix 40mg Q12 ID: Rocephin and zithro for empiric tx for CAP blood, urine cultures ordered MRSA screen ID consulted, recs appreciated procal ordered Endo: maintain euglycemia Heme: H/H stable dvt ppx Diet: NPO for cath DVT ppx: Lovenox GI ppx: ptx Dispo: patient for cath today, will cont monitoring and once cleared by cardio, can be transferred from ICU Patient was seen, examined and discussed with attending, Dr. Janny Wilks PGY1 Pager # [phone]
[2018-01-19 07:48] LABS: ARTERIAL BLOOD GAS HCO3 25.9 mmol/L (21-28); ARTERIAL BLOOD GAS HEMOGLOBIN 11.8 g/dL (11.7-17.4); ARTERIAL BLOOD GAS O2 CAPACITY 16.3 mL/dl (16-24); ARTERIAL BLOOD GAS PCO2 34 mm/Hg (35-45); ARTERIAL BLOOD GAS PH 7.49 (7.35-7.45); ARTERIAL BLOOD GAS TCO2 26.9 mmol.L (22-28)
--- NOTE | 2018-01-19 08:54 | RAD ---
HISTORY: Follow-up COMPARISON: January 18, 2018. FINDINGS: LUNGS: Persistent multifocal and asymmetric infiltrates left greater than right. PLEURA: No significant pleural effusion identified, no pneumothorax apparent. CARDIOVASCULAR: Cardiomegaly/CHF. OSSEOUS STRUCTURES: No significant abnormalities. VISUALIZED UPPER ABDOMEN: Normal. OTHER FINDINGS: None. IMPRESSION: Stable CHF.
[2018-01-19] MEDS: Metoprolol Succinate 25 mg XL Tab PO SCH (09:00)
[2018-01-19] MEDS ORDERED: Pantoprazole 40 mg EC Tab PO SCH (10:00)
[2018-01-19] MEDS ORDERED: MethylPREDNISolone 40 mg Vial IVP SCH (10:00)
[2018-01-19] MEDS ORDERED: cefTRIAXone 1 gm 1 GM/100 ML BAG IVPB SCH ×2 (10:00→12:51)
[2018-01-19] MEDS ORDERED: Sodium Bicarbonate (8.4%) 50 Meq Syringe IVP ONE (10:13)
[2018-01-19] MEDS ORDERED: Sodium Bicarbonate 8.4% 130 MEQ in Dextrose 5% In Water 1,000 ML IV SCH (10:15)
[2018-01-19] MEDS ORDERED: Nitroglycerin 50mg in D5W 0 MG/0 ML BOTTLE IV ONE (11:18)
[2018-01-19] MEDS ORDERED: Phenylephrine 10 mg/ml Inj ONE (11:18)
[2018-01-19] MEDS ORDERED: Iodixanol 320 MG/ML 200 ML BOTTLE IV ONE (11:18)
[2018-01-19] MEDS ORDERED: Lidocaine 2% Inj (20ml) ONE (11:18)
[2018-01-19] MEDS ORDERED: Iohexol 350mgl/ml 50 ML ONE (11:18)
[2018-01-19] MEDS ORDERED: Iodixanol 320 MG/ML 100 ML BOTTLE IV ONE (11:18)
[2018-01-19] MEDS ORDERED: HEPARIN SODIUM/NS 2,000 ML IV ONE (11:19)
[2018-01-19] MEDS ORDERED: Famotidine 20mg/50ml 20 MG/50 ML BAG IVPB ONE (11:47)
[2018-01-19] MEDS ORDERED: DiphenhydrAMINE 50 mg/ml Inj ONE (11:47)
[2018-01-19] MEDS ORDERED: Midazolam 2 MG/2 ML VIAL ONE ×2 (11:54→12:13)
[2018-01-19] MEDS ORDERED: Digoxin 500 mcg/2ml (0.5 mg/2ml) Inj ONE (12:06)
[2018-01-19] MEDS ORDERED: diltiaZEM IVPB 100mg in NS 100 ML IV PRN (12:13)
--- NOTE | 2018-01-19 12:37 | CON ---
DATE: 01/19/2018 PULMONARY CONSULTATION REASON FOR CONSULTATION: Shortness of breath. REFERRING PHYSICIAN: Myron Chaudhary DO. HISTORY OF PRESENT ILLNESS: History is obtained via extensive discussion with the ICU nurse. I have also discussed the case with the patient at length, and reviewed the chart at length. The patient is a 67-year-old male, with past medical history significant for hypertension, transient ischemic attack in the past, who presents to [facility] with a 3-day history of worsening shortness of breath at rest, dyspnea on exertion and cough. There is no history of sputum production. There is no history of chest pain, coughing up of blood or chest pain - made worse with deep respirations. There is no history of temperatures, chills or infectious exposure. There is no history of night sweats, weight loss or appetite change prior to the above events. No history of leg or calf pains. No history of syncope or diaphoresis. No history of recent travel or trauma. REVIEW OF SYSTEMS: No history of nausea, vomiting or diarrhea. No acute urinary symptoms. No new neurologic or musculoskeletal complaints. Rest of the review of systems is negative. ALLERGIES: NO KNOWN ALLERGIES. SOCIAL HISTORY: Negative for tobacco. Negative for alcohol. FAMILY HISTORY: No inheritable diseases. HOME MEDICATIONS: Include Norvasc and vitamin D. PHYSICAL EXAMINATION: GENERAL: The patient appears comfortable this morning. He is not short of breath at rest. He is not using accessory muscles for breathing. VITAL SIGNS: Temperature is 98.4, pulse 79, respirations 18, blood pressure 131/86. Oxygen saturation on BiPAP is 97%. HEENT: Normocephalic, atraumatic. No JVD. CARDIOVASCULAR: Systolic ejection murmur at the lower left sternal border. Positive S3 gallop. LUNGS: Crackles at the lower lobes. Very minimal rhonchi. No wheezing. EXTREMITIES: No clubbing, cyanosis or edema. Calves are nontender to palpation. GI: Abdomen is soft, nontender and nondistended. Bowel sounds are positive. SKIN: No acute rash. NEUROLOGIC: Limited at the present time. PERTINENT LABORATORY DATA: Chest x-ray was done yesterday and today. There are bilateral pulmonary infiltrates, most consistent with pulmonary edema. However, the infiltrates do appear more dense at the left lower lobe. Arterial blood gas was done on BiPAP with 40% oxygen. Results are: PH 7.44, pCO2 of 29, pO2 of 89. CBC: White count 8.9, hemoglobin 12.3, hematocrit 36.3, platelets of 200,000. Complete metabolic profile: Chloride 96, BUN 30, creatinine 1.6, glucose 144, AST 64, ALT 62, troponin 5.96. Initial B-type natriuretic peptide 7540. Rest of the profile is within normal limits. IMPRESSION: 1. Acute myocardial infarction. 2. Acute congestive heart failure. 3. Respiratory insufficiency. 4. Renal insufficiency. 5. Rule out pneumonia - left lower lobe. PLAN: The patient presents to [facility] with a 3-day history of worsening pulmonary symptoms. I did review the chest x-rays--as above. There are bilateral pulmonary infiltrates noted. However, again, there appears to be a more dense infiltrate noted at the left lower lobe. The patient has been placed on antibiotic therapy. Input by Dr. Plaza is noted. Procalcitonin level has also been ordered. I did discuss the case with the night nurse at length. The night nurse stated that the patient is ,clinically, much improved compared to last night. In addition, comparing the 2 chest x-rays, there are definitely less infiltrates noted on today's film. I did review the arterial blood gas as above. There is a compensated metabolic acidosis noted, with an increase in the alveolar-arterial gradient. I will order a repeat arterial blood gas - to be done on nasal cannula-- this morning. Cardiology evaluation with Dr. Cleveland has been ordered. The patient has been placed on enoxaparin and clopidogrel. The patient is also on intravenous Lasix. Additional Cardiology intervention will be as per Dr. Cleveland. Clinical status of the patient is certainly improved - compared to the initial presentation. However, this patient remains critically ill, with a very guarded prognosis. I will discuss the above with the entire ICU team in the next few moments. I will also discuss the above with Dr. Chaudhary later this morning. Thank you very much for this pulmonary consultation. Maximiliano Reid MD [facility]
[2018-01-19] MEDS ORDERED: Sodium Chloride 0.9% 1,000 ML IV SCH (12:45)
[2018-01-19 13:20] VITALS: PULSE 138
--- NOTE | 2018-01-19 13:38 | PN ---
DATE: SUBJECTIVE: I saw him in the Intensive Care Unit. He is resting comfortably in bed. He is doing better than when he came in. Less shortness of breath, talking better. He is on Ecotrin, Lasix, Lipitor, Lovenox, nitroglycerin drip, Plavix, Protonix, Rocephin IV, Solu-Medrol, Toprol and Zithromax. PHYSICAL EXAMINATION VITAL SIGNS: He has a 98.4 temperature, 79 pulse, 131/86 blood pressure, 18 respiratory rate, 97% O2 sat on BiPAP. His blood pressure has been as high as 135/98. HEENT: His head is atraumatic, normocephalic. HEART: Regular rate. LUNGS: Decreased breath sounds, but clearing. ABDOMEN: Soft. EXTREMITIES: No edema. LABORATORY DATA: He has a 8.9 white count, 12.3 hemoglobin, 36.3 hematocrit with 200 platelets. Lactate was 4.1, it is now down to 2.8, but still high. He has sodium 138, potassium 4.2, BUN is 30, creatinine 1.6, little bit higher; GFR is 43, sugar is 144, calcium is total bilirubin is 1.1. AST is 64, ALT is 62, alkaline phosphatase troponins are high, they were 4.56 and 4.57, another 5.96. Urine is clear. ASSESSMENT AND PLAN: He is being seen by Infectious Disease, Cardiology and I believe Cardiology is going to take him for a cardiac catheterization. There were consults for Pulmonary, Infectious Disease and Cardiology. He has multiple issues at this time. He is having hypertension, coronary artery disease, systemic inflammatory response syndrome, acute congestive heart failure, non ST-elevation myocardial infarction, possible pneumonia, congestive heart failure. We will continue with aggressive treatment and care. Hopefully, he will do well with the cardiac catheterization this morning. We will check his labs tomorrow. Myron Chaudhary DO [facility]
--- NOTE | 2018-01-19 13:42 | CARDCATH ---
PROCEDURE DATE: 01/19/2018 CARDIAC CATH REPORT HISTORY: The patient is a 67-year-old male who presents with CHF as well as a non-STEMI. Because of this, cardiac catheterization was recommended. PROCEDURE: Left heart catheterization with coronary arteriography and left ventriculogram. The right femoral artery was cannulated with a 6-Danish sheath. There were no complications. I performed moderate sedation, which included the presence of an independent trained observer that assisted in monitoring the patient's level of consciousness and physiologic status. After administration of Versed and fentanyl, my intra-service time was 15 minutes. The patient was pretreated with steroids because of an ALLERGY TO IODINE. The findings on catheterization revealed a left ventricle that was compromised. The anterior wall shows severe hypokinesis. Overall ejection fraction is approximately 35-40%. There is no mitral regurgitation. His coronary anatomy revealed a right dominant circulation. The RCA was occluded in its proximal portion. Collaterals from the LAD septal act tutor as well as from the circumflex artery was seen filling the distal PDA. The left main artery was unremarkable. The LAD was occluded after the large septal act tutor. The circumflex artery, obtuse marginal branch was subtotally occluded in its proximal portion. Angio-Seal was used to close the femoral artery site. The patient tolerated the procedure well. In summary, the procedure revealed severe triple-vessel disease with an occluded RCA, occluded LAD as well as a 99% stenoses in the proximal obtuse marginal branch of the circumflex artery. Collaterals were seen filling the distal RCA from the septal act tutor as well as from the circumflex artery. Late filling of the distal LAD was noted. LV function was compromised with an anterior apical hypokinetic area with overall ejection fraction of 35-40%. Given these findings, the patient will need coronary artery bypass surgery. I have discussed this with the patient in detail. The family understands the risks, benefits. Have the patient transferred to for coronary artery bypass surgery. Charles Cleveland MD
[2018-01-19 20:16] VITALS: O2SAT 95
[2018-01-19 21:09] VITALS: BP 128/75
[2018-01-19 21:41] VITALS: PULSE 88; RESP 22
[2018-01-19 21:42] VITALS: TEMP 98.4
--- NOTE | 2018-01-19 23:42 | PN ---
DATE: 01/19/2018 SUBJECTIVE: The patient is in bed, was seen earlier today in 129, bed 4. He is comfortable, less short of breath, doing well. PHYSICAL EXAMINATION: VITAL SIGNS: On exam, temperature is 98, blood pressure is 109/40, respiratory rate of 18, heart rate of 76. HEENT: Examination of HEENT is unremarkable. NECK: Supple. LUNGS: Have decreased breath sounds. HEART: Exam is normal S1, S2. ABDOMEN: Examination is soft, nontender. LABORATORY DATA: Laboratory examination reveals a white count of 8.9, hemoglobin of 12, platelets are noted. Creatinine is 1.6. Patient's procalcitonin is less than 0.05. Urinalysis is noted. Microbiology reveals blood cultures are negative. Urine cultures are negative. Patient had a cardiac catheterization by Dr. Charles Cleveland and Dr. Myron Chaudhary's note is reviewed. ASSESSMENT AND PLAN: This is a 67-year-old [place] male with past medical history significant for hypertension, coronary artery disease, transient ischemic attack and renal disease, was admitted with systemic inflammatory response syndrome with acute congestive heart failure with a non-ST elevation myocardial infarction, status post cardiac catheterization. The patient is for possible coronary bypass graft. We will discontinue the antibiotics with a normal procalcitonin and negative cultures. No indication for antibiotics, and will keep the patient off of antibiotics; however, the patient is at risk for developing nosocomial infections. River Plaza MD
[2018-01-20] MEDS ORDERED: Enoxaparin 80 mg Syringe SC SCH (08:45)
== END 2018-01-19 20:45 | disposition short-term general hospital (02) | DRG 280 ==
LOC: ED 13:17 → ERH 14:56 → CCU 22:57
PROVIDERS: ADMIT Family Medicine; ATTEND Family Medicine
PROC: 5A09357 Assistance with Respiratory Ventilation, Less than 24 Consecutive Hours, Continuous Positive Airway Pressure (ICD-10-PCS; 2018-01-18)
PROC: 4A023N7 Measurement of Cardiac Sampling and Pressure, Left Heart, Percutaneous Approach (ICD-10-PCS; principal; 2018-01-19)
PROC: B2151ZZ Fluoroscopy of Left Heart using Low Osmolar Contrast (ICD-10-PCS; 2018-01-19)
PROC: B2111ZZ Fluoroscopy of Multiple Coronary Arteries using Low Osmolar Contrast (ICD-10-PCS; 2018-01-19)
DX: I21.4 Non-ST elevation (NSTEMI) myocardial infarction (principal); I50.21 Acute systolic (congestive) heart failure; J18.9 Pneumonia, unspecified organism; I25.10 Atherosclerotic heart disease of native coronary artery without angina pectoris; I11.0 Hypertensive heart disease with heart failure; N28.9 Disorder of kidney and ureter, unspecified; Z86.73 Personal history of transient ischemic attack (TIA), and cerebral infarction without residual deficits; Z91.041 Radiographic dye allergy status